=== PATIENT | female | born 1960 | race Caucasian/White ===

== ENCOUNTER 2016-06-04 11:51 | Outpatient (CLI) ==
[2016-03-09 07:42] VITALS: BMI 38.9
[2016-06-04 13:28] LABS: BASOPHILS # (AUTO) 0.1 K/uL (0-0.2); BASOPHILS % (AUTO) 1.1 % (0.0-3.0); EOSINOPHILS # (AUTO) 0.2 K/ul (0.0-0.7); HEMOGLOBIN 12.7 g/dl (12.0-16.0); IMMATURE GRANULOCYTE % (AUTO) 0.4 % (0.0-5.0); LYMPHOCYTES # (AUTO) 2.3 K/uL (0.60-3.4); LYMPHOCYTES % (AUTO) 30.7 (10.0-50.0); MEAN CORPUSCULAR HEMOGLOBIN 25.8 pg (27.0-31.0); MEAN CORPUSCULAR VOLUME 83.3 fl (81.0-99.0); MONOCYTES # (AUTO) 0.7 K/uL (0.4-2.0); MONOCYTES % (AUTO) 9.6 (0-10); NEUTROPHILS # (AUTO) 4.3 K/ul (2.0-6.9); NEUTROPHILS % (AUTO) 56.2; PLATELET COUNT 380 10^3/uL (140-440); RED BLOOD COUNT 4.92 10^6/ul (4.20-5.40)
[2016-06-04 14:18] LABS: ALBUMIN 3.7 g/dL (3.4-5.0); ALBUMIN/GLOBULIN RATIO 1.06; ANION GAP 11.3; BILIRUBIN,TOTAL 0.47 mg/dL (0.00-1.20); CALCIUM 9.6 mg/dL (8.2-10.2); CREATININE 0.84 mg/dL (0.60-1.30); POTASSIUM 4.3 mmol/L (3.5-5.10); TOTAL PROTEIN 7.2 g/dL (6.4-8.2)
== END 2016-06-04 11:52 | disposition home or self-care (01) ==
LOC: LAB 11:51
PROVIDERS: ATTEND Nurse Practitioner Family
DX: E11.9 Type 2 diabetes mellitus without complications (principal); E78.1 Pure hyperglyceridemia; E78.5 Hyperlipidemia, unspecified; G62.9 Polyneuropathy, unspecified; E03.9 Hypothyroidism, unspecified
CPT/HCPCS: 36415; 80053; 80061; 83036; 84443; 85025

== ENCOUNTER 2016-07-20 07:46 | Outpatient (CLI) ==
[2016-03-09 07:42] VITALS: BMI 38.9
--- NOTE | 2016-07-20 08:15 | DI ---
EXAM: Lumbar spine five views HISTORY: Lumbar radiculopathy, disc degeneration COMPARISON: 03/04/2010 TECHNIQUE: Five views lumbar spine were performed including oblique views. FINDINGS: The patient status post posterior spinal fusion L3-L4. Hardware appears intact. Sacroil iac joints intact. Sacral arcuate lines intact. Mild rightward curvature lumbar spine. Vertebral b odies normal height. Multilevel marginal osteophyte formation. Multilevel mild to moderate interve rtebral disc space narrowing. Multilevel facet arthrosis. There is approximate 3 mm retrolisthesis of L1 on L2 and approximately 2 mm anterolisthesis of L5 on S1. Atherosclerotic vascular calcifica tion. IMPRESSION: Posterior spinal fusion L3-L4. Chronic discogenic degenerative disease and facet arthr osis with grade 1 spondylolistheses.
== END 2016-07-20 07:47 | disposition home or self-care (01) ==
LOC: RAD 07:46
PROVIDERS: ATTEND Pain Medicine Interventional Pain Medicine
DX: M51.16 Intervertebral disc disorders with radiculopathy, lumbar region (principal); M51.17 Intervertebral disc disorders with radiculopathy, lumbosacral region; M96.1 Postlaminectomy syndrome, not elsewhere classified; M51.36 Other intervertebral disc degeneration, lumbar region; M51.37 Other intervertebral disc degeneration, lumbosacral region

== ENCOUNTER 2016-07-31 08:12 | Outpatient (CLI) | payer OTHER ==
[2016-03-09 07:42] VITALS: BMI 38.9
[2016-07-31 08:47] LABS: ALBUMIN 3.4 g/dL (3.4-5.0); ALBUMIN/GLOBULIN RATIO 0.94; ANION GAP 16.3; BILIRUBIN,TOTAL 0.33 mg/dL (0.00-1.20); BUN/CREATININE RATIO 21.17; CALCIUM 9.7 mg/dL (8.2-10.2); CHOL/HDL RATIO 5.2 (4.5-5.5); CREATININE 0.85 mg/dL (0.60-1.30); POTASSIUM 4.3 mmol/L (3.5-5.10)
== END 2016-07-31 08:13 | disposition home or self-care (01) ==
LOC: LAB 08:12
PROVIDERS: ATTEND Nurse Practitioner Family
DX: E78.5 Hyperlipidemia, unspecified (principal)
CPT/HCPCS: 36415; 80053; 80061

== ENCOUNTER 2016-10-13 08:12 | Outpatient (CLI) | payer OTHER ==
[2016-03-09 07:42] VITALS: BMI 38.9
[2016-10-13 08:27] LABS: BASOPHILS % (AUTO) 0.5 % (0.0-3.0); EOSINOPHILS # (AUTO) 0.3 K/ul (0.0-0.7); EOSINOPHILS % (AUTO) 4.1 % (0.0-7.0); HEMATOCRIT 41.6 % (37.0-47.0); HEMOGLOBIN 14.1 g/dl (12.0-16.0); IMMATURE GRANULOCYTE % (AUTO) 0.5 % (0.0-5.0); LYMPHOCYTES % (AUTO) 30.3 (10.0-50.0); MEAN CORPUSCULAR HEMOGLOBIN 27.3 pg (27.0-31.0); MEAN CORPUSCULAR HGB CONC 33.9 (31.8-35.4); MEAN CORPUSCULAR VOLUME 80.5 fl (81.0-99.0); MONOCYTES # (AUTO) 0.6 K/uL (0.4-2.0); MONOCYTES % (AUTO) 8.7 (0-10); NEUTROPHILS # (AUTO) 3.7 K/ul (2.0-6.9); NEUTROPHILS % (AUTO) 55.9; PLATELET COUNT 402 10^3/uL (140-440); RED BLOOD COUNT 5.17 10^6/ul (4.20-5.40); WHITE BLOOD COUNT 6.53 K/ul (4.6-10.2)
[2016-10-13 09:09] LABS: ALBUMIN 3.8 g/dL (3.4-5.0); ALBUMIN/GLOBULIN RATIO 0.88; ANION GAP 16.3; BILIRUBIN,TOTAL 0.4 mg/dL (0.00-1.20); BUN/CREATININE RATIO 25.74; CALCIUM 10.2 mg/dL (8.2-10.2); CHOL/HDL RATIO 6.7 (4.5-5.5); CREATININE 1.01 mg/dL (0.60-1.30); POTASSIUM 4.3 mmol/L (3.5-5.10); TOTAL PROTEIN 8.1 g/dL (6.4-8.2)
== END 2016-10-13 08:13 | disposition home or self-care (01) ==
LOC: LAB 08:12
PROVIDERS: ATTEND Nurse Practitioner Family
DX: E78.1 Pure hyperglyceridemia (principal); E78.5 Hyperlipidemia, unspecified; E11.9 Type 2 diabetes mellitus without complications; E03.9 Hypothyroidism, unspecified; E66.9 Obesity, unspecified
CPT/HCPCS: 36415; 80053; 80061; 83036; 84443; 85025

== ENCOUNTER 2016-12-02 14:47 | Inpatient (IN) ==
[2016-12-02] MEDS ORDERED: NITROSTAT SL PRN (14:59)
[2016-12-02] MEDS ORDERED: ATROPINE SULFATE PFS IVP PRN (14:59)
[2016-12-02] MEDS ORDERED: MORPHINE 4 MG/ML SYRINGE IVP PRN (14:59)
[2016-12-02] MEDS ORDERED: TYLENOL PO PRN (14:59)
[2016-12-02] MEDS ORDERED: LASIX IVP STA (14:59)
[2016-12-02] MEDS ORDERED: VISTARIL INJ IM PRN (14:59)
[2016-12-02] MEDS ORDERED: SODIUM CHLORIDE 1,000 ML IV SCH (15:00)
[2016-12-02 15:29] LABS: BASOPHILS # (AUTO) 0.1 K/uL (0-0.2); BASOPHILS % (AUTO) 1.1 % (0.0-3.0); EOSINOPHILS # (AUTO) 0.2 K/ul (0.0-0.7); EOSINOPHILS % (AUTO) 2.4 % (0.0-7.0); HEMATOCRIT 36.9 % (37.0-47.0); HEMOGLOBIN 12.4 g/dl (12.0-16.0); IMMATURE GRANULOCYTE % (AUTO) 0.9 % (0.0-5.0); LYMPHOCYTES # (AUTO) 2.4 K/uL (0.60-3.4); LYMPHOCYTES % (AUTO) 28.7 (10.0-50.0); MEAN CORPUSCULAR HEMOGLOBIN 27.7 pg (27.0-31.0); MEAN CORPUSCULAR HGB CONC 33.6 (31.8-35.4); MEAN CORPUSCULAR VOLUME 82.6 fl (81.0-99.0); MONOCYTES # (AUTO) 0.8 K/uL (0.4-2.0); MONOCYTES % (AUTO) 10.3 (0-10); NEUTROPHILS # (AUTO) 4.6 K/ul (2.0-6.9); NEUTROPHILS % (AUTO) 56.6; PLATELET COUNT 293 10^3/uL (140-440); RED BLOOD COUNT 4.47 10^6/ul (4.20-5.40); WHITE BLOOD COUNT 8.18 K/ul (4.6-10.2)
[2016-12-02 15:36] VITALS: BMI 42.0
[2016-12-02] MEDS: LOVENOX SUBCUT SCH (15:52)
[2016-12-02] MEDS: SOLU-MEDROL 125 MG IVP SCH ×2 (15:52→20:09)
[2016-12-02] MEDS ORDERED: ZOFRAN TAB PO PRN (16:06)
[2016-12-02 16:07] LABS: ALANINE AMINOTRANSFERASE 23 U/L (12-78); ALBUMIN 3.4 g/dL (3.4-5.0); ALBUMIN/GLOBULIN RATIO 0.94; ALKALINE PHOSPHATASE 31 U/L (42-98); ASPARTATE AMINO TRANSFERASE 17 U/L (15-37); BLOOD UREA NITROGEN 26 mg/dL (7-18); BUN/CREATININE RATIO 28.88; CALCIUM 9.4 mg/dL (8.2-10.2); CARBON DIOXIDE 25 mmol/L (21-32); CHLORIDE 101 mmol/L (98-107); CREATINE KINASE 129 U/L; GLUCOSE 261 mg/dL (70-110); MYOGLOBIN 50 ng/ml; SODIUM 136 mmol/L (136-145)
[2016-12-02 16:10] LABS: CREATINE KINASE MB 3.8 ng/ml (0.0-3.6)
--- NOTE | 2016-12-02 16:33 | CT ---
EXAM: CT chest without contrast. HISTORY: Shortness of air. Chest pain. COMPARISON: Radiograph 02/06/2013. CT 01/04/2011. TECHNIQUE: Multiple axial images of the chest were obtained without intravenous contrast. Images w ere reformatted in the sagittal and coronal planes. FINDINGS: Evaluation for lymphadenopathy is limited by lack of intravenous contrast. Heart size is normal. There is a small amount of pericardial fluid. Atherosclerotic calcifications are present. No consolidation, pleural effusion or pneumothorax identified. There is a stable right upper lobe m icronodule on axial image 10. There is a 0.2 cm right upper lobe micronodule on axial image 12 whic h appears new. Limited images of the upper abdomen suggest hepatomegaly. Degenerative changes present throughout t he spine. IMPRESSION: 1. No acute cardiopulmonary process. 2. New right upper lobe micronodule. Consider follow-up examination in 12 months.
[2016-12-02 16:44] LABS: ADD URINE MICROSCOPIC NO; BILIRUBIN,URINE Negative (NEGATIVE); KETONES,URINE Negative (NEGATIVE); LEUKOCYTE ESTERASE ,URINE Negative (NEGATIVE); NITRITE,URINE Negative (NEGATIVE); PH,URINE 5.5 (5-9); PROTEIN,URINE Negative (NEGATIVE); URINE, BLOOD Negative (NEGATIVE)
[2016-12-02] MEDS: OMEGA-3 FISH OIL PO SCH (17:05)
[2016-12-02] MEDS: PRILOSEC PO SCH (17:05)
[2016-12-02] MEDS: HUMULIN R SUBCUT PRN ×2 (17:06→20:52)
[2016-12-02] MEDS: NORCO 10-325 PO SCH ×2 (17:06→20:53)
[2016-12-02] MEDS: GLUCOPHAGE PO SCH (17:06)
[2016-12-02] MEDS: HUMALOG SUBCUT SCH (17:07)
[2016-12-02 17:09] LABS: ABG BASE EXCESS 7 (-2.0-2.0); ABG HCO3 31.1 (22.0-26.0); ABG PCO2 45.9 mmHg (35-45); ABG PH 7.438 (7.35-7.45); ABG TCO2 32 (22.0-28.0)
[2016-12-02] MEDS ORDERED: INSULIN ASPART 25 UNIT SQ SCH (17:30)
[2016-12-02] MEDS ORDERED: NON-FORMULARY MEDICATION (Omega-3 Acid Ethyl Esters [Lovaza] 1 GM) PO SCH ×22 (17:30)
[2016-12-02] MEDS ORDERED: NON-FORMULARY MEDICATION (Metformin Hcl [Metformin Hcl] 1,000 MG) PO SCH ×22 (17:30)
[2016-12-02] MEDS: DUONEB NEB SCH (20:20)
[2016-12-02] MEDS: LYRICA PO SCH (20:53)
[2016-12-02] MEDS: LANTUS SUBCUT SCH (20:53)
[2016-12-02] MEDS: LIPITOR PO SCH (20:53)
[2016-12-02] MEDS: DESYREL PO SCH (20:53)
[2016-12-02] MEDS: ROBAXIN PO SCH (20:55)
[2016-12-02] MEDS: TRIGLIDE PO SCH (20:55)
[2016-12-02] MEDS ORDERED: NON-FORMULARY MEDICATION (Atorvastatin Calcium [Atorvastatin Calcium] 40 MG) PO SCH ×22 (21:00)
[2016-12-02] MEDS ORDERED: TRIGLIDE PO SCH (21:00)
[2016-12-02] MEDS ORDERED: METHOCARBAMOL 500 MG PO SCH ×21 (21:00)
[2016-12-02 23:11] LABS: TROPONIN I 0.016 ng/ml (0.0000-0.4000)
[2016-12-03 04:46] LABS: BASOPHILS % (AUTO) 0.3 % (0.0-3.0); HEMATOCRIT 37.7 % (37.0-47.0); HEMOGLOBIN 12.5 g/dl (12.0-16.0); IMMATURE GRANULOCYTE % (AUTO) 0.9 % (0.0-5.0); LYMPHOCYTES # (AUTO) 1.1 K/uL (0.60-3.4); LYMPHOCYTES % (AUTO) 9.7 (10.0-50.0); MEAN CORPUSCULAR HEMOGLOBIN 27.3 pg (27.0-31.0); MEAN CORPUSCULAR HGB CONC 33.2 (31.8-35.4); MEAN CORPUSCULAR VOLUME 82.3 fl (81.0-99.0); MONOCYTES # (AUTO) 0.1 K/uL (0.4-2.0); MONOCYTES % (AUTO) 1.1 (0-10); NEUTROPHILS # (AUTO) 9.9 K/ul (2.0-6.9); PLATELET COUNT 295 10^3/uL (140-440); RED BLOOD COUNT 4.58 10^6/ul (4.20-5.40); WHITE BLOOD COUNT 11.21 K/ul (4.6-10.2)
[2016-12-03 05:08] LABS: ALBUMIN 3.2 g/dL (3.4-5.0); ALBUMIN/GLOBULIN RATIO 0.91; ANION GAP 16.5; BILIRUBIN,TOTAL 0.24 mg/dL (0.00-1.20); BUN/CREATININE RATIO 31.91; CALCIUM 9.3 mg/dL (8.2-10.2); CREATININE 0.94 mg/dL (0.60-1.30); POTASSIUM 4.5 mmol/L (3.5-5.10); TOTAL PROTEIN 6.7 g/dL (6.4-8.2)
[2016-12-03] MEDS: DUONEB NEB SCH ×3 (05:38→20:33)
[2016-12-03] MEDS: SYNTHROID PO SCH (05:57)
[2016-12-03] MEDS: HUMULIN R SUBCUT PRN ×4 (05:57→21:10)
[2016-12-03] MEDS: PRILOSEC PO SCH ×2 (05:57→16:35)
[2016-12-03] MEDS: OMEGA-3 FISH OIL PO SCH ×3 (08:13→16:35)
[2016-12-03] MEDS: NORCO 10-325 PO SCH ×4 (08:13→21:10)
[2016-12-03] MEDS: SINGULAIR PO SCH (08:13)
[2016-12-03] MEDS: ESTRADIOL PO SCH (08:13)
[2016-12-03] MEDS: ASPIRIN EC PO SCH (08:13)
[2016-12-03] MEDS: FERROUS SULFATE PO SCH (08:13)
[2016-12-03] MEDS: GLUCOPHAGE PO SCH ×2 (08:13→16:35)
[2016-12-03] MEDS: COLACE PO SCH (08:14)
[2016-12-03] MEDS: LOVENOX SUBCUT SCH (08:14)
[2016-12-03] MEDS: LYRICA PO SCH ×3 (08:14→21:10)
[2016-12-03] MEDS: ROBAXIN PO SCH ×3 (08:14→21:13)
[2016-12-03] MEDS: HUMALOG SUBCUT SCH ×3 (08:22→17:48)
[2016-12-03] MEDS ORDERED: NON-FORMULARY MEDICATION (Meloxicam [Mobic] 15 MG) PO SCH ×22 (09:00)
[2016-12-03] MEDS ORDERED: LASIX TAB PO SCH (09:00)
[2016-12-03] MEDS ORDERED: NON-FORMULARY MEDICATION (Fluticasone Propionate [Flonase Allergy Relief] 2 SPRAY) NS SCH (09:00)
[2016-12-03] MEDS ORDERED: NON-FORMULARY MEDICATION (Ferrous Sulfate [Ferrous Sulfate] 325 MG) PO SCH ×22 (09:00)
[2016-12-03] MEDS ORDERED: MOBIC PO SCH (09:00)
[2016-12-03] MEDS ORDERED: ZESTRIL PO SCH (09:00)
[2016-12-03] MEDS ORDERED: ESTRADIOL 1 MG PO SCH ×22 (09:00)
[2016-12-03] MEDS: HYDROCHLOROTHIAZIDE PO SCH (09:17)
[2016-12-03] MEDS: SOLU-MEDROL 125 MG IVP SCH ×2 (09:17→21:16)
--- NOTE | 2016-12-03 13:52 | CT ---
EXAM: CT head without contrast. HISTORY: Weakness. Dizziness. COMPARISON: 03/28/2014. TECHNIQUE: Multiple axial images of the brain were obtained from the skull base through the vertex without intravenous contrast. FINDINGS: There is no intracranial hemorrhage or extraaxial collection. The alejandre-white differentia tion is maintained without evidence for acute large vascular territory infarction. The cortical sul ci and basal cisterns are well visualized. There is no hydrocephalus, mass effect, or midline shift . Moderate mucosal thickening of the right maxillary sinus noted. There is a small amount of fluid within the right mastoid air cells. Otherwise, the paranasal sinuses and mastoid air cells are samuel ar. The calvarium is intact. Since the prior study, there has been no significant interval change. IMPRESSION: No acute intracranial abnormality.
--- NOTE | 2016-12-03 15:00 | US ---
EXAM: Ultrasound bilateral carotid duplex. HISTORY: Weakness. Dizziness. COMPARISON: 03/08/2012. TECHNIQUE: Multiple alejandre scale and color Doppler images were obtained. FINDINGS: Please note that estimates of internal carotid artery stenoses are based upon NASCET barrington montez. Right carotid: Soft plaquing noted without 50% or greater stenosis. Peak systolic velocity measure ment in the right internal carotid artery is 0.7 meters per second. Right internal to common caroti d artery peak systolic velocity ratio measures 1.1. End diastolic velocity measurement in the right internal carotid artery is 0.2 meters per second. Flow in the right vertebral artery is antegrade. Left carotid: Soft plaquing noted without 50% or greater stenosis. Peak systolic velocity measurem ent in the left internal carotid artery is 1.3 meters per second. Left internal to common carotid a rtery peak systolic velocity ratio measures 1.7. End diastolic velocity measurement in the left int ernal carotid artery measures 0.3 meters per second. Flow in the left vertebral artery is antegrade . IMPRESSION: 1. No evidence for 50% or greater stenosis in the right or left internal carotid artery. 2. Antegrade flow in both vertebral arteries.
[2016-12-03] MEDS: LANTUS SUBCUT SCH (21:12)
[2016-12-03] MEDS: LIPITOR PO SCH (21:13)
[2016-12-03] MEDS: DESYREL PO SCH (21:13)
[2016-12-03] MEDS: TRIGLIDE PO SCH (21:15)
[2016-12-04 04:57] LABS: BASOPHILS % (AUTO) 0.1 % (0.0-3.0); EOSINOPHILS % (AUTO) 0.1 % (0.0-7.0); HEMATOCRIT 38.7 % (37.0-47.0); HEMOGLOBIN 12.8 g/dl (12.0-16.0); LYMPHOCYTES # (AUTO) 1.1 K/uL (0.60-3.4); LYMPHOCYTES % (AUTO) 7.8 (10.0-50.0); MEAN CORPUSCULAR HEMOGLOBIN 27.1 pg (27.0-31.0); MEAN CORPUSCULAR HGB CONC 33.1 (31.8-35.4); MEAN CORPUSCULAR VOLUME 81.8 fl (81.0-99.0); MONOCYTES # (AUTO) 0.3 K/uL (0.4-2.0); MONOCYTES % (AUTO) 2.3 (0-10); NEUTROPHILS # (AUTO) 12.5 K/ul (2.0-6.9); NEUTROPHILS % (AUTO) 88.7; PLATELET COUNT 342 10^3/uL (140-440); RED BLOOD COUNT 4.73 10^6/ul (4.20-5.40); WHITE BLOOD COUNT 14.06 K/ul (4.6-10.2)
[2016-12-04] MEDS: DUONEB NEB SCH (05:21)
[2016-12-04 05:32] LABS: ALBUMIN 3.6 g/dL (3.4-5.0); ALBUMIN/GLOBULIN RATIO 0.95; ANION GAP 20.7; BILIRUBIN,TOTAL 0.24 mg/dL (0.00-1.20); BUN/CREATININE RATIO 32.98; CALCIUM 10.1 mg/dL (8.2-10.2); CREATININE 0.97 mg/dL (0.60-1.30); POTASSIUM 4.7 mmol/L (3.5-5.10); TOTAL PROTEIN 7.4 g/dL (6.4-8.2)
[2016-12-04] MEDS: SYNTHROID PO SCH (06:07)
[2016-12-04] MEDS: PRILOSEC PO SCH (06:07)
[2016-12-04] MEDS: HUMULIN R SUBCUT PRN (06:08)
[2016-12-04] MEDS ORDERED: LASIX TAB PO SCH (06:30)
--- NOTE | 2016-12-04 07:34 | ECHO2D ---
Date of Exam: 12/03/16 [facility] Reason for Echo: CHEST HEAVINESS, CHEST PAIN M-Mode Normal Adult Results LV Dimensions Normal Adult Results AoV Opening excursions >1.6 >1.6 LVEDD-base- 3.5-5.8 5.0 Ao root dimensions 2.0-3.7 3.2 LVESD-base- 3.1-4.6 L. Atrium dimensions 1.9-3.8 3.9 Post. Wall thickness 0.8-1.1 1.1 IV septum (thickness) 0.7-1.2 1.0 Post. Wall excursion 0.72-1.3 NORMAL Septal motion NORMAL Systolic motion R. Ventricular cavity 1.5-2.0 NORMAL LVEF 60% 63% Paradoxical septal wall motion NORMAL 2-D : 2-D M Mode Echocardiogram was performed using apical four chamber and left parasternal long and short axis views. Mitral, tricuspid and aortic valves appear to be normal. Contractility of the left ventricle seems to be normal, so is the cavity size. Left atrial cavity size and aortic root appear to be normal. There is no pericardial effusion. There is no thrombus noted in the left ventricular or left aortic cavity. No mitral valve prolapse noted. M-MODE: MV: NORMAL AV: NORMAL TV: NORMAL PV: CHAMBER SIZE: NORMAL WALL MOTION: NORMAL PERICARDIUM: NORMAL INTERPRETATION: 1. NORMAL 2 "D" "M" MODE ECHO MTDD
[2016-12-04] MEDS ORDERED: MOBIC PO SCH (08:00)
[2016-12-04] MEDS: LOVENOX SUBCUT SCH (08:33)
[2016-12-04] MEDS: ESTRADIOL PO SCH (08:33)
[2016-12-04] MEDS: ASPIRIN EC PO SCH (08:33)
[2016-12-04] MEDS: ROBAXIN PO SCH (08:33)
[2016-12-04] MEDS: COLACE PO SCH (08:36)
[2016-12-04] MEDS: FERROUS SULFATE PO SCH (08:36)
[2016-12-04] MEDS: SINGULAIR PO SCH (08:36)
[2016-12-04] MEDS: LYRICA PO SCH (08:36)
[2016-12-04] MEDS: OMEGA-3 FISH OIL PO SCH ×2 (08:36→12:24)
[2016-12-04] MEDS: HYDROCHLOROTHIAZIDE PO SCH (08:36)
[2016-12-04] MEDS: GLUCOPHAGE PO SCH (08:37)
[2016-12-04] MEDS: SOLU-MEDROL 125 MG IVP SCH (08:39)
[2016-12-04] MEDS: HUMALOG SUBCUT SCH ×2 (08:40→12:24)
[2016-12-04] MEDS: NORCO 10-325 PO SCH (08:57)
[2016-12-04 11:26] VITALS: BP 154/77; TEMP 97.6
--- NOTE | 2016-12-04 15:44 | PN ---
DATE OF SERVICE: 12/03/16 SUBJECTIVE: The patient was admitted with the shortness of breath and mild asthma and exacerbation and dependant edema. BNP was negative. CT chest showed did not show any infiltrate. Two sets are the cardiac enzymes are negative. Dependant edema is a little bit better today with the Lasix. REVIEW OF SYSTEMS: CONSTITUTIONAL: No fever, no chills. HEENT: Normal. ENDOCRINE: No weight gain, no weight loss. CVS: No angina symptoms. No CHF symptoms. No palpitations. No atypical chest pain for CAD. No shortness of breath. No PND, no orthopnea. RESPIRATORY: No cough, no hemoptysis. GI: No nausea, no vomiting. No abdominal pain. : No hematuria. No polyuria. MUSCULOSKELETAL:. No joint swelling. PSYCHIATRIC: Not anxious. No depression. No suicidal thoughts. No homicidal thoughts. SKIN: Intact. No rash. PHYSICAL EXAMINATION: V/S: Blood pressure 134/77, respiratory rate 20, heart rate 82, temperature 97.8. HEENT: Normocephalic, atraumatic. Mucosa dry. NECK: Supple. No JVD, no carotid bruit. No lymphadenopathy. LUNGS: Decreased and Clear to auscultation. No rales or rhonchi. HEART: S1, S2 normal. No S3. No murmur, gallop or regurgitation. ABDOMEN: Soft, nontender. Bowel sounds active. No rigidity. No rebound or guarding. No CVA tenderness. EXTREMITIES: No clubbing, cyanosis. 1+ edema. MUSCULOSKELETAL: No joint swelling. NEUROLOGIC: Awake, alert, oriented times three. No focal deficit. LYMPHATIC: No lymph nodes palpable. SKIN: Intact. LABS: WBC 11.21, hgb 12.5, hct 37.7, plt count 195, sodium 135, potassium 4.5, chloride 98, bicarb 25, BUN 30, creatinine 0.94 and sugar 282 ASSESSMENT: 1. Shortness of breath similar to the asthmatic exacerbation 2. Chest pain, non-cardiac 3. Diabetes, uncontrolled 4. Hypertension 5. Dyslipidemia PLAN: 1. Lovenox for the DVT prophylaxis 2. Daily I&O's 3. Echocardiogram Will follow the patient in daily rounds. TIME SPENT: More than 30 minutes MTDD
--- NOTE | 2016-12-04 15:53 | DS ---
DATE OF SERVICE: 12/04/16 FINAL DIAGNOSIS: 1. Asthmatic exacerbation 2. Shortness of breath secondary to the asthmatic exacerbation 3. Dependant Edema, not related to the CHF 4. Chest pain, still under the evaluation with outpatient stress test, Dobutamine stress echo and sestamibi 5. Diabetes, Labile 6. Hypertension 7. Dyslipidemia 8. Obesity 9. Dependent edema 10.Fatty liver 11.Bilateral lingual hernia repair 12.Hysterectomy 13.Left hand carpal tunnel surgery, 08/2016 14.History of back surgery, 2001 15.Anxiety disorder 16.Depression DISCHARGE INSTRUCTIONS: Discharge the patient home. Outpatient Dobutamine Stress Echo and Sestamibi next week, 12/09. Recovery Agent followup and consult. Resume home medications. MEDICATIONS AT DISCHARGE: Colace 100mg PO daily Metformin 1,000mg PO twice a day Atorvastatin 40mg PO bedtime Prilosec 20mg PO twice a day Robaxin 500mg PO three times a day Fenofibrate 160mg PO bedtime Hydrocodone/Acetaminophen 10-325 one PO four times a day Lasix 40mg PO daily Flonase Allergy Relief 2 sprays NS daily PRN Ferrous Sulfate 325mg PO daily NovoLog FlexPen 25 unit SQ three times a day Lee-3 1gram PO three times a day Trazodone 50mg PO bedtime Lyrica 50mg three times a day Levothyroxine 75mcg PO daily Zofran 4mg PO twice a day PRN Vitamin D2 50,000unit PO weekly Lantus 100 unit SUBCUT bedtime Singulair 10mg PO daily Estradiol 1mg PO daily Mobic 15mg PO daily Hydrochlorothiazide 25mg PO daily Prednisone 10mg PO twice a day DUO NEBS 1 vial NEB RT twice a day PRN NEW PRESCRIPTIONS: DUO NEBS two to three times per day Prednisone 10mg twice a day for 5 five DIET INSTRUCTIONS: Cardiac and Diabetes Diet ACTIVITY: As much as tolerated SMOKING: Non-Smoker DISEASE SPECIFIC EDUCATION: Asthmatic bronchitis Need of pneumonia vaccination been discussed and verbalized understanding. HOSPITAL COURSE: IndumumtazKamryn a 55 year old female who came initially to office complaining of worsening shortness of breath over time period 4-5 days and cough and midsternal chest pain, heaviness and radiating to the left arm. In review of the patient's diabetes, hypertension and history of TIA's she was admitted to the hospital to rule out acute coronary syndrome. Echocardiogram was ordered and three sets of the cardiac enzymes are negative. ABG showed the pH 7.438, pCO2 45.9,l pO2 89. Sugars were [address] of the chest was negative for any infection. Meanwhile the family was visiting the patient and they were complaining that the patient's right side of the mouth was deviated and they are worried about the stroke. At that time CT of head was done which did not show any stroke. Carotid ultrasound which did show any blockage which showed no evidence for 50 or greater stenosis. Echocardiogram showed the left ventricle hypertrophy. Normal 2D mode echocardiogram, ejection fraction is 63%. With Lasix IV push two days the patient did feel a little better with the swelling otherwise no complications during the hospital stay. At that time the patient is discharged home on DUO NEBS and steroids. Outpatient Dobutamine stress echo and sestamibi. TIME SPENT: More than 55 minutes today. KLEVER
[2016-12-07] MEDS ORDERED: DRISDOL PO SCH (09:00)
== END 2016-12-04 12:48 | disposition home or self-care (01) | DRG 203 ==
LOC: SCU 14:47 → MEDSURG B 12-03 21:35
PROVIDERS: ADMIT Emergency Medicine; ATTEND Emergency Medicine
DX: J45.901 Unspecified asthma with (acute) exacerbation (principal); R06.02 Shortness of breath; R60.9 Edema, unspecified; R07.89 Other chest pain; E11.65 Type 2 diabetes mellitus with hyperglycemia; I10 Essential (primary) hypertension; E78.5 Hyperlipidemia, unspecified; E66.9 Obesity, unspecified; K76.0 Fatty (change of) liver, not elsewhere classified; F41.8 Other specified anxiety disorders; Z86.73 Personal history of transient ischemic attack (TIA), and cerebral infarction without residual deficits; Z79.84 Long term (current) use of oral hypoglycemic drugs; Z79.899 Other long term (current) drug therapy
CPT/HCPCS: 36415; 80053; 81001; 82550; 82553; 82803; 82962; 83874; 83880; 84484; 85025; 85379; 93005; 93010; 94640

== ENCOUNTER 2016-12-09 06:02 | Outpatient (CLI) ==
[2016-12-09] MEDS ORDERED: DOBUTAMINE 250 ML IV ONE (07:16)
[2016-12-09] MEDS ORDERED: ATROPINE SULFATE PFS ONE (07:17)
--- NOTE | 2016-12-09 10:02 | NM ---
Exam: Myocardial perfusion study. Date: 12/09/2016. Comparison: None. HISTORY: Chest pain and shortness of breath. TECHNIQUE: The patient was intravenously infused with dobutamine. During the infusion, 25.1 mCi of technetium 99m sestamibi was injected and SPECT myocardial perfusion imaging begun within 60 minute s. For comparison, resting study was performed following injection of 4.2 mCi of thallium 201. A s tress gated acquisition was acquired as part of the study to evaluate for regional wall motion as we ll as to give an estimation of the left ventricular ejection fraction. FINDINGS: On the stress images in the apical anterior and anteroseptal sue there is decreased perf usion with normal distribution on delayed thallium imaging. The LVEF is estimated at 59%. Impression: Stress induced ischemic change involving the apical anteroseptal and anterior sue. F urther workup would be recommended. LVEF estimated at 59%.
--- NOTE | 2016-12-09 10:51 | DOBSTECHST ---
Ordering Physician: LIAM Date of Test: 12/09/16 Reason for Examination: CHEST PAIN Current Medications: METFORMIN, ATORVASTATIN, PRILOSEC, ROBAXIN, FENOFIBRATE, LASIX, FLONASE, IRON, NOVOLOG, LOVAZA, TRAZODONE, LYRICA, ZOFRAN, SINGULAIR, MOBIC Height: 4' 11" Weight: 208 LBS Target Heart Rate: 140/165 ST Segment Stage Time HR BPM BP mmhg Rhythm +/- Up Down Comments/Symptoms Control Sitting 66 140/80 SR X NONE Dobutamine 250mg/D5W 5cmg/KG/mn 10cmg/KG/mn 3" 78 140/70 SR X NONE 15cmg/KG/mn 2" 90 150/60 SR X NONE 20cmg/KG/mn 2" 104 150/58 SR X NONE 25cmg/KG/mn 1:40 123 NONE 30cmg/KG/mn 35cmg/KG/mn 40cmg/KG/mn Time: 3 HR B/P Time: 6 HR B/P Time: HR B/P Recovery 87 150/64 Recovery 83 140/70 Recovery Total Time: 8:52 Maximum Heart Rate Reached: 123 __ Interpretation: 1. NO EVIDENCE OF ISCHEMIA BY ST-T WAVE (HEART RATE 60/BPM TO 123/BPM) 2. NORMAL LEFT VENTRICULAR CONTRACTILITY RESTING AND WITH DOBUTAMINE INFUSION 3. NO CHEST PAIN OR CHEST DISCOMFORT 4. PAC'S AND PVC'S WITH DOBUTAMINE INFUSION SESTAMIBI TO FOLLOW MTDD
--- NOTE | 2016-12-09 10:56 | ECHOSTRESS ---
Date of Exam: 12/09/16 Ordering Physician: LIAM Reason for Echo: CHEST PAIN M-Mode Normal Adult Results LV Dimensions Normal Adult Results AoV Opening excursions >1.6 LVEDD-base- 3.5-5.8 Ao root dimensions 2.0-3.7 LVESD-base- 3.1-4.6 L. Atrium dimensions 1.9-3.8 Post. Wall thickness 0.8-1.1 IV septum (thickness) 0.7-1.2 Post. Wall excursion 0.72-1.3 Septal motion Systolic motion R. Ventricular cavity 1.5-2.0 LVEF 60% Paradoxical septal wall motion 2-D: NORMAL LEFT VENTRICULAR CONTRACTILITY--RESTING AND WITH DOBUTAMINE INFUSION M-MODE: MV: AV: TV: PV: CHAMBER SIZE: WALL MOTION: NORMAL LEFT VENTRICULAR CONTRACTILITY--RESTING AND WITH DOBUTAMINE INFUSION PERICARDIUM: INTERPRETATION: 1. NORMAL LEFT VENTRICULAR CONTRACTILITY--RESTING AND WITH DOBUTAMINE INFUSION MTDD
== END 2016-12-09 06:03 | disposition home or self-care (01) ==
LOC: CAR 06:02
PROVIDERS: ATTEND Emergency Medicine
DX: R07.9 Chest pain, unspecified (principal); R06.02 Shortness of breath

== ENCOUNTER 2016-12-15 09:27 | Outpatient (CLI) ==
[2016-12-15 10:55] VITALS: BMI 42.4
== END 2016-12-15 09:28 | disposition home or self-care (01) ==
LOC: DIETCN 09:27
PROVIDERS: ATTEND Emergency Medicine
DX: E78.5 Hyperlipidemia, unspecified (principal); E11.9 Type 2 diabetes mellitus without complications; E66.9 Obesity, unspecified
CPT/HCPCS: 97802

== ENCOUNTER 2017-02-25 08:41 | Outpatient (CLI) ==
--- NOTE | 2017-02-26 09:09 | MAMMO ---
EXAM: Digital screening mammogram with tomosynthesis 3-D and CAD HISTORY: Screening mammogram COMPARISON: 05/07/2011 FINDINGS: Bilateral CC and MLO views of the breasts were performed digitally and demonstrate scatter ed fibroglandular breast density with subareolar parenchymal density. Tomosynthesis is normal. There is no abnormal nodule or calcification. There is no significant interval change. IMPRESSION: No new or suspicious nodule or calcification RECOMMENDATION: Annual screening mammogram BIRADS category 1: Negative
== END 2017-02-25 08:42 | disposition home or self-care (01) ==
LOC: RAD 08:41
PROVIDERS: ATTEND Emergency Medicine
DX: Z12.31 Encounter for screening mammogram for malignant neoplasm of breast (principal)
CPT/HCPCS: 77067

== ENCOUNTER 2017-03-18 05:14 | Emergency (ER) ==
[2017-03-18] MEDS ORDERED: ZOFRAN 4 MG/2 ML IVP STA (05:16)
[2017-03-18] MEDS ORDERED: SODIUM CHLORIDE 1,000 ML IV STA ×2 (05:16→06:33)
[2017-03-18 05:36] VITALS: BP 128/87; TEMP 97.7; BMI 45.4
--- NOTE | 2017-03-18 06:09 | ED.PDOC ---
General ED Provider: Dr. JAMEEL HANSON-ER Chief Complaint: Diarrhea Stated Complaint: im having diarrhea and vomiting and abd cramps Time Seen by Physician: 05:20 Mode of Arrival: Walk-In Information Source: Patient Exam Limitations: No limitations [facility] Nursing and Triage Documentation Reviewed and Agree: Yes GI Complaint Exam - Vomiting/Diarrhea Complaint/Exam Onset/Duration: several days Symptoms Are: Still present Initial Severity: Mild Current Severity: Mild Character of Vomiting: Reports: Non-bilious Character of Diarrhea: Reports: Watery Aggravating: Reports: None Alleviating: Reports: None Associated Signs and Symptoms: Reports: Abdominal pain, Cramping. Denies: Dizziness, Light-headedness, Melena, Hematemesis, Fever Use of Oral Contraceptives: No Use of Depoprovera: No Non-GI Risk Factors: Reports: None Surgical Obstruction Risk Factors: Reports: Prior abdominal surgery Abdominal Findings: Present: None Kussmaul Respirations Present: No Differential Diagnoses: Dehydration, Viral Gastroenteritis, Bacterial Gastroenteritis, UTI Review of Systems - Review Of Systems Constitutional: Reports: No symptoms Eyes: Reports: No symptoms Ears, Nose, Mouth, Throat: Reports: No symptoms Respiratory: Reports: No symptoms Cardiac: Reports: No symptoms GI: Reports: Abdominal pain, Diarrhea, Nausea, Vomiting : Reports: No symptoms Musculoskeletal: Reports: No symptoms Skin: Reports: No symptoms Neurological: Reports: No symptoms Endocrine: Reports: No symptoms Hematologic/Lymphatic: Reports: No symptoms All Other Systems: Reviewed and Negative Past Medical History - Past Medical History Previously Healthy: No Endocrine: Reports: Hypothyroid Cardiovascular: Reports: Hypertension Respiratory: Reports: COPD, Asthma Hematological: Reports: None Gastrointestinal: Reports: GERD, Liver (fatty liver) Genitourinary: Reports: None Neuro/Psych: Reports: Depression Musculoskeletal: Reports: None Cancer: Reports: None Last Menstrual Period: PT HAS HAD A HYSTERECTOMY Other Pertinent Past Medical History: SLEEP APNEA - Surgical History General Surgical History: Reports: Hysterectomy, (HERNIA REPAIR AND C- SECTION), Appendectomy, Cholecystectomy, Tonsillectomy, Adenoidectomy, Back Surgery, Other (CATARACT SURGERY BILITERALLY, ) - Family History Family History: Reports: Unknown - Social History Smoking Status: Never smoker Hx Substance Use: No Alcohol Screening: Occasionally Lives: With family - Immunizations Tetanus Shot up to Date: (UNKNOWN) Physical Exam - Physical Exam Appearance: Well-appearing, No pain distress, Well-nourished Pain Distress: Mild Eyes: STEVEN, EOMI, Conjunctiva clear ENT: Ears normal, Nose normal, Oropharynx normal Neck: Supple Respiratory: Airway patent, Breath sounds clear, Breath sounds equal, Respirations nonlabored Cardiovascular: RRR, Pulses normal, No rub, No murmur GI/: Soft, No masses, Bowel sounds normal Musculoskeletal: Normal strength, ROM intact, No edema, No calf tenderness Skin: Warm, Dry, Normal color Neurological: Sensation intact, Motor intact, Reflexes intact, Cranial nerves intact, Alert, Oriented Psychiatric: Affect appropriate, Mood appropriate Interpretation - Radiology Interpretation Radiology Interpretation By: Radiologist Radiology Results: Positive Exam Interpreted: CT Scan ("sbo with transition zone") Critical Care Note - Critical Care Note Total Time (mins): 0 Course - Course Hematology/Chemistry: 03/18/17 06:20 Orders, Labs, Meds: Lab Review 03/18/17 06:20 WBC 14.93 H RBC 5.34 Hgb 14.4 Hct 43.7 MCV 81.8 MCH 27.0 MCHC 33.0 RDW Coeff of Vern 14.3 Plt Count 346 Immature Gran % (Auto) 0.5 Neut % (Auto) 80.3 Lymph % (Auto) 9.9 L [place] % (Auto) 7.7 Eos % (Auto) 1.2 Baso % (Auto) 0.4 Immature Gran # (Auto) 0.1 Neut # 12.0 H Lymph # 1.5 [place] # 1.2 Eos # 0.2 Baso # 0.1 Orders Category Date Time Status EKG-(ED ONLY) Stat CARDIO 03/18/17 05:38 Completed ED IV/MEDIPORT/POWERPORT .ONCE EMERGENCY 03/18/17 05:16 Active NG Tube [ED NASOGASTRIC TUBE INSERTION] .ONCE EMERGENCY 03/18/17 06:38 Active CBC W/ AUTO DIFF Stat LAB 03/18/17 06:20 Completed COMPREHENSIVE METABOLIC PANEL Stat LAB 03/18/17 06:20 Received CREATINE KINASE Stat LAB 03/18/17 06:20 Received TROPONIN I Stat LAB 03/18/17 06:20 Received URINALYSIS C & S IF INDICATED Stat LAB 03/18/17 05:15 Uncollected 0.9 % Sodium Chloride [Saline Flush] MEDS 03/18/17 05:16 Ordered 1 syr IVF PRN PRN Ondansetron HCl/Pf [Zofran 4 mg/2 ml] MEDS 03/18/17 05:16 Discontinued 4 mg IVP ONCE STA Sodium Chloride 0.9% [Sodium Chloride] 1,000 ml MEDS 03/18/17 06:33 Active IV 100 mls/hr Sodium Chloride 0.9% [Sodium Chloride] 1,000 ml MEDS 03/18/17 05:[address] ABDOMEN/PELVIS WO CONTRAST Stat RADS 03/18/17 05:15 Taken Medications Generic Name Dose Route Start Last Admin Trade Name Freq PRN Reason Stop Dose Admin Sodium Chloride 1,000 mls @ 100 mls/hr 03/18/17 06:33 03/18/17 06:37 Sodium Chloride IV 03/18/17 16:32 100 mls/hr .Q10H STA Administration Sodium Chloride 1 syr 03/18/17 05:16 03/18/17 05:33 Saline Flush IVF 1 syr PRN PRN Administration To flush IV Discontinued Medications Generic Name Dose Route Start Last Admin Trade Name Freq PRN Reason Stop Dose Admin Sodium Chloride 1,000 mls @ 1,000 mls/hr 03/18/17 05:16 03/18/17 05:33 Sodium Chloride IV 03/18/17 06:15 1,000 mls/hr BOLUS STA Administration Ondansetron HCl 4 mg 03/18/17 05:16 03/18/17 05:45 Zofran 4 Mg/2 Ml IVP 03/18/17 05:17 4 mg ONCE STA Administration Vital Signs: Temp Pulse Resp BP Pulse Ox 03/18/17 05:17 97.7 F 92 H 20 128/87 95 Departure - Departure Time of Disposition: 06:40 Disposition: TSF SHORT-TRM HOSP Discharge Problem: Small bowel obstruction Instructions: Bowel Obstruction (ED) Condition: Stable Pt referred to PMD for follow-up: Yes Allergies/Adverse Reactions: Allergies No Known Allergies Allergy (Verified 03/18/17 05:37) Home Medications: Ambulatory Orders Docusate Sodium [Colace] 100 mg PO DAILY 02/06/13 Metformin HCl 1,000 mg PO BID 02/06/13 Methocarbamol [Robaxin] 500 mg PO TID 03/09/13 Omeprazole [Prilosec] 20 mg PO BID 03/09/13 Hydrocodone/Acetaminophen [Hydrocodon-Acetaminophn 10-325] 1 each PO QID Estradiol 1 mg PO DAILY 12/02/16 Insulin Glargine,Hum.rec.anlog [Lantus] 100 unit SUBCUT BEDTIME 12/02/16 Meloxicam [Mobic] 15 mg PO DAILY 12/03/16 Ipratropium/Albuterol Neb [Duoneb] 1 vial NEB RTBID PRN #60 vial.neb 12/04/16 Aspirin 81 mg PO d 01/21/17 Atorvastatin Calcium 80 mg PO BEDTIME 01/21/17 Albuterol Sulfate [Ventolin Hfa] 2 inh IH TID PRN 03/18/17 Fenofibrate 160 mg PO BEDTIME 03/18/17 Transfer Form Completed: Yes Disposition Discussed With: Patient
[2017-03-18 06:28] LABS: BASOPHILS # (AUTO) 0.1 K/uL (0-0.2); BASOPHILS % (AUTO) 0.4 % (0.0-3.0); EOSINOPHILS # (AUTO) 0.2 K/ul (0.0-0.7); EOSINOPHILS % (AUTO) 1.2 % (0.0-7.0); HEMATOCRIT 43.7 % (37.0-47.0); HEMOGLOBIN 14.4 g/dl (12.0-16.0); IMMATURE GRANULOCYTE % (AUTO) 0.5 % (0.0-5.0); LYMPHOCYTES # (AUTO) 1.5 K/uL (0.60-3.4); LYMPHOCYTES % (AUTO) 9.9 (10.0-50.0); MEAN CORPUSCULAR VOLUME 81.8 fl (81.0-99.0); MONOCYTES # (AUTO) 1.2 K/uL (0.4-2.0); MONOCYTES % (AUTO) 7.7 (0-10); NEUTROPHILS % (AUTO) 80.3; PLATELET COUNT 346 10^3/uL (140-440); RED BLOOD COUNT 5.34 10^6/ul (4.20-5.40); WHITE BLOOD COUNT 14.93 K/ul (4.6-10.2)
--- NOTE | 2017-03-18 06:40 | CT ---
EXAM: CT scan abdomen pelvis without contrast HISTORY: Nausea vomiting diarrhea COMPARISON: CT scan abdomen pelvis 04/19/2013 FINDINGS: Contiguous axial images obtained through the abdomen pelvis without contrast utilizing 3-m m collimation. Sagittal and coronal reconstructions were imaged and reviewed.. The visualized lung bases are clear. There is coronary artery calcification without pericardial effusion. Fatty infiltr ation is noted throughout the liver. There has been prior cholecystectomy. The pancreas, spleen and adrenal glands have normal enhanced CT appearance. The kidneys are morphologically normal. There h as been prior hysterectomy.. Atherosclerotic changes are seen involving the aorta without aneurysm f ormation. Stomach is mildly distended with air and fluid. There are dilated air and fluid-filled loo ps of small bowel which extend from left upper quadrant with a transition in the mid pelvis.. Postop erative changes are seen within the lower lumbar spine. IMPRESSION: Small bowel obstruction with transition in the mid pelvis. Status post cholecystectomy and hysterectomy. ASVD without aneurysm. Fatty liver. Results were conveyed to the emergency room physician via telephone 6:35 a.m. 03/18/2017
[2017-03-18 06:45] LABS: ALBUMIN/GLOBULIN RATIO 0.83; ANION GAP 16.4; BILIRUBIN,TOTAL 0.54 mg/dL (0.00-1.20); BUN/CREATININE RATIO 32.69; CALCIUM 9.4 mg/dL (8.2-10.2); CREATININE 1.04 mg/dL (0.60-1.30); POTASSIUM 3.4 mmol/L (3.5-5.10); TOTAL PROTEIN 6.6 g/dL (6.4-8.2)
[2017-03-18] MEDS ORDERED: LIDOCAINE VISCOUS 2% 15 ML UD MUCOUSMEMB ONE (06:50)
[2017-03-18 06:59] LABS: CREATINE KINASE 122 U/L
--- NOTE | 2017-03-18 07:53 | DI ---
EXAM: Chest one view, frontal view only. HISTORY: Nasogastric tube placement. COMPARISON: 12/02/2016. FINDINGS: Enteric tube courses below the diaphragm. Tip is seen in the epigastric region likely in the mid to distal stomach. The heart size is normal. There is no pulmonary vascular congestion. Th e lungs are clear. No pleural effusion or pneumothorax is seen. No acute osseous abnormality is margarito ntified. Lumbar spine fusion changes are incompletely imaged. IMPRESSION: Enteric tube positioned as described. No acute cardiopulmonary process.
== END 2017-03-18 08:05 | disposition short-term general hospital (02) ==
LOC: ED 05:14
DX: K56.609 Unspecified intestinal obstruction, unspecified as to partial versus complete obstruction (principal); E03.9 Hypothyroidism, unspecified; I10 Essential (primary) hypertension; K21.9 Gastro-esophageal reflux disease without esophagitis; K76.0 Fatty (change of) liver, not elsewhere classified; Z79.899 Other long term (current) drug therapy
CPT/HCPCS: 36415; 80053; 82550; 82553; 84484; 85025; 93005; 93010; 96361; 96374; 99285

== ENCOUNTER 2017-05-04 13:18 | Outpatient (CLI) ==
[2017-05-04 14:58] LABS: CHOL/HDL RATIO 3.1 (4.5-5.5)
== END 2017-05-04 13:19 | disposition home or self-care (01) ==
LOC: LAB 13:18
PROVIDERS: ATTEND Emergency Medicine
DX: E11.9 Type 2 diabetes mellitus without complications (principal)
CPT/HCPCS: 36415; 80061; 83036

== ENCOUNTER 2017-05-15 16:16 | Emergency (ER) ==
[2017-05-15 16:50] VITALS: BP 139/67; TEMP 98.9; BMI 45.2
[2017-05-15] MEDS ORDERED: SODIUM CHLORIDE 500 ML IV STA (17:06)
[2017-05-15] MEDS ORDERED: ZOFRAN 4 MG/2 ML IVP STA (17:06)
[2017-05-15 17:27] LABS: BASOPHILS # (AUTO) 0.1 K/uL (0-0.2); BASOPHILS % (AUTO) 0.4 % (0.0-3.0); EOSINOPHILS # (AUTO) 0.3 K/ul (0.0-0.7); EOSINOPHILS % (AUTO) 1.9 % (0.0-7.0); HEMATOCRIT 46.8 % (37.0-47.0); HEMOGLOBIN 15.8 g/dl (12.0-16.0); IMMATURE GRANULOCYTE % (AUTO) 0.4 % (0.0-5.0); LYMPHOCYTES # (AUTO) 1.9 K/uL (0.60-3.4); LYMPHOCYTES % (AUTO) 13.9 (10.0-50.0); MEAN CORPUSCULAR HEMOGLOBIN 26.8 pg (27.0-31.0); MEAN CORPUSCULAR HGB CONC 33.8 (31.8-35.4); MEAN CORPUSCULAR VOLUME 79.3 fl (81.0-99.0); MONOCYTES # (AUTO) 1.1 K/uL (0.4-2.0); MONOCYTES % (AUTO) 8.1 (0-10); NEUTROPHILS # (AUTO) 10.5 K/ul (2.0-6.9); NEUTROPHILS % (AUTO) 75.3; PLATELET COUNT 353 10^3/uL (140-440); WHITE BLOOD COUNT 13.95 K/ul (4.6-10.2)
--- NOTE | 2017-05-15 17:40 | CT ---
Exam: CT abdomen and pelvis without IV contrast. Clinical indication: Diarrhea. TECHNIQUE: Axial unenhanced CT images of the abdomen and pelvis were obtained followed by coronal an d sagittal reformats. Comparison is made to the prior study dated 03/18/2017. Findings: There are coronary artery calcifications. The remainder of the visualized portions of the lower thor ax are within normal limits. There is no free intra-abdominal gas or fluid. There has been a prior cholecystectomy. The liver, adrenals, pancreas, spleen, and kidneys are unremarkable, given the limitations of an unen hanced CT. There is aortic atherosclerotic vascular calcifications. There are no enlarged abdominal or pelvic lymph nodes, by size criteria. There has been a prior hysterectomy. The bowel is grossly unremarkable. The appendix is not visualized, likely surgically absent. There has been a prior L3-L4 posterior spinal fusion, without CT evidence of hardware complication. The remainder of the visualized bony structures are unremarkable. Impression: 1. Coronary and aortoiliac atherosclerotic vascular calcifications. 2. Otherwise, unremarkable CT of the abdomen and pelvis, given the limitations of an unenhanced CT.
[2017-05-15 17:49] LABS: ALBUMIN 3.5 g/dL (3.4-5.0); ALBUMIN/GLOBULIN RATIO 0.8; BILIRUBIN,TOTAL 0.49 mg/dL (0.00-1.20); BUN/CREATININE RATIO 27.19; CALCIUM 9.9 mg/dL (8.2-10.2); CREATININE 1.14 mg/dL (0.60-1.30); TOTAL PROTEIN 7.9 g/dL (6.4-8.2)
[2017-05-15] MEDS ORDERED: K-DUR PO STA (18:41)
--- NOTE | 2017-05-15 18:43 | ED.PDOC ---
General ED Provider: Dr. JUSTIN GONSALVES Chief Complaint: Nausea/Vomiting Stated Complaint: vOMITED X 4. sTILL FEELING NAUSEA. Time Seen by Physician: 18:44 Mode of Arrival: Walk-In Information Source: Patient Primary Care Provider: JUSTIN GONSALVES-[facility] Nursing and Triage Documentation Reviewed and Agree: Yes GI Complaint Exam - Vomiting/Diarrhea Complaint/Exam Symptoms Are: Still present Episodes of Vomiting over last 24 Hours: 5 Initial Severity: Moderate Current Severity: Moderate Character of Vomiting: Reports: Non-bilious Aggravating: Reports: Food, Movement Alleviating: Reports: None Associated Signs and Symptoms: Reports: Light-headedness. Denies: Dizziness, Melena, Hematemesis, Fever, Abdominal pain, Cramping Recent Positive Test: No Use of Oral Contraceptives: No Use of Depoprovera: No Compliant With Contraceptive Use: No Non-GI Risk Factors: Reports: None Surgical Obstruction Risk Factors: Reports: None Related Surgical History: Reports: None Abdominal Findings: Present: Pulsatile mass, Abdominal distention Differential Diagnoses: Viral Gastroenteritis, Bacterial Gastroenteritis Review of Systems - Review Of Systems Constitutional: Reports: Malaise, Weakness Eyes: Reports: No symptoms Ears, Nose, Mouth, Throat: Reports: No symptoms Respiratory: Reports: No symptoms Cardiac: Reports: No symptoms GI: Reports: Abdominal pain, Nausea, Vomiting : Reports: No symptoms Musculoskeletal: Reports: No symptoms Skin: Reports: No symptoms Neurological: Reports: No symptoms Endocrine: Reports: No symptoms Hematologic/Lymphatic: Reports: No symptoms All Other Systems: Reviewed and Negative Past Medical History - Past Medical History Previously Healthy: No Endocrine: Reports: Hypothyroid Cardiovascular: Reports: Hypertension Respiratory: Reports: COPD, Asthma Hematological: Reports: None Gastrointestinal: Reports: GERD, Liver (fatty liver) Genitourinary: Reports: None Neuro/Psych: Reports: Depression Musculoskeletal: Reports: None Cancer: Reports: None Last Menstrual Period: hysterectomy Other Pertinent Past Medical History: SLEEP APNEA - Surgical History General Surgical History: Reports: Hysterectomy, (HERNIA REPAIR AND C- SECTION), Appendectomy, Cholecystectomy, Tonsillectomy, Adenoidectomy, Back Surgery, Other (CATARACT SURGERY BILITERALLY, ) - Family History Family History: Reports: Unknown - Social History Smoking Status: Never smoker Hx Substance Use: No Alcohol Screening: None Physical Exam - Physical Exam Appearance: Ill-appearing Eyes: STEVEN, EOMI, Conjunctiva clear ENT: Ears normal, Nose normal, Oropharynx normal Respiratory: Airway patent, Breath sounds clear, Breath sounds equal, Respirations nonlabored Cardiovascular: RRR, Pulses normal, No rub, No murmur GI/: Soft, Nontender, No masses, Bowel sounds normal, No Organomegaly Musculoskeletal: Normal strength, ROM intact, No edema, No calf tenderness Skin: Warm, Dry, Normal color Neurological: Sensation intact, Motor intact, Reflexes intact, Cranial nerves intact, Alert, Oriented Psychiatric: Affect appropriate, Mood appropriate Critical Care Note - Critical Care Note Total Time (mins): 20 Course - Course Hematology/Chemistry: 05/15/17 17:23 05/15/17 17:23 Orders, Labs, Meds: Lab Review 05/15/17 05/15/17 17:23 17:23 WBC 13.95 H RBC 5.90 H Hgb 15.8 Hct 46.8 MCV 79.3 L MCH 26.8 L MCHC 33.8 RDW Coeff of Vern 15.2 H Plt Count 353 Immature Gran % (Auto) 0.4 Neut % (Auto) 75.3 Lymph % (Auto) 13.9 [place] % (Auto) 8.1 Eos % (Auto) 1.9 Baso % (Auto) 0.4 Immature Gran # (Auto) 0.1 Neut # 10.5 H Lymph # 1.9 [place] # 1.1 Eos # 0.3 Baso # 0.1 Sodium 140 Potassium 3.0 L Chloride 95 L Carbon Dioxide 26 Anion Gap 22.0 BUN 31 H Creatinine 1.14 Estimated GFR (MDRD) 49.00 BUN/Creatinine Ratio 27.19 Glucose 99 Calcium 9.9 Total Bilirubin 0.49 AST 28 ALT 31 Alkaline Phosphatase 55 Total Protein 7.9 Albumin 3.5 Globulin 4.4 Albumin/Globulin Ratio 0.80 Orders Category Date Time Status ED IV/MEDIPORT/POWERPORT .ONCE EMERGENCY 05/15/17 17:06 Active CBC W/ AUTO DIFF Stat LAB 05/15/17 17:23 Completed COMPREHENSIVE METABOLIC PANEL Stat LAB 05/15/17 17:23 Completed 0.9 % Sodium Chloride [Saline Flush] MEDS 05/15/17 17:06 Ordered 1 syr IVF PRN PRN Ondansetron HCl/Pf [Zofran 4 mg/2 ml] MEDS 05/15/17 17:06 Discontinued 4 mg IVP ONCE STA Potassium Chloride [K-Dur] MEDS 05/15/17 18:41 Stat 40 meq PO ONCE STA Sodium Chloride 0.9% [Sodium Chloride] 500 ml MEDS 05/15/17 17:06 Active IV 100 mls/hr CT ABDOMEN/PELVIS WO CONTRAST Stat RADS 05/15/17 17:06 Completed Medications Generic Name Dose Route Start Last Admin Trade Name Freq PRN Reason Stop Dose Admin Sodium Chloride 500 mls @ 100 mls/hr 05/15/17 17:06 05/15/17 17:46 Sodium Chloride IV 05/15/17 22:05 100 mls/hr .Q5H STA Administration Sodium Chloride 1 syr 05/15/17 17:06 Saline Flush IVF PRN PRN To flush IV Discontinued Medications Generic Name Dose Route Start Last Admin Trade Name Freq PRN Reason Stop Dose Admin Ondansetron HCl 4 mg 05/15/17 17:06 05/15/17 17:45 Zofran 4 Mg/2 Ml IVP 05/15/17 17:07 4 mg ONCE STA Administration Vital Signs: Temp Pulse Resp BP Pulse Ox 05/15/17 16:18 98.9 F 118 H 20 139/67 96 Departure - Departure Time of Disposition: 18:45 Disposition: HOME SELF-CARE Discharge Problem: Gastroenteritis Instructions: Dehydration (ED), Gastroenteritis (ED) Condition: Good Pt referred to PMD for follow-up: Yes Additional Instructions: SOFT DIET iNCREASE HYDRATION Prescriptions: Ondansetron [Zofran Odt] 4 mg PO Q8H #20 tab.rapdis Potassium Chloride 20 meq PO BID #14 tab.er.prt Allergies/Adverse Reactions: Allergies No Known Allergies Allergy (Verified 05/15/17 16:24) Home Medications: Ambulatory Orders Docusate Sodium [Colace] 100 mg PO DAILY 02/06/13 Metformin HCl 1,000 mg PO BID 02/06/13 Methocarbamol [Robaxin] 500 mg PO TID 03/09/13 Omeprazole [Prilosec] 20 mg PO BID 03/09/13 Hydrocodone/Acetaminophen [Hydrocodon-Acetaminophn 10-325] 1 each PO QID Estradiol 1 mg PO DAILY 12/02/16 Insulin Glargine,Hum.rec.anlog [Lantus] 100 unit SUBCUT BEDTIME 12/02/16 Meloxicam [Mobic] 15 mg PO DAILY 12/03/16 Ipratropium/Albuterol Neb [Duoneb] 1 vial NEB RTBID PRN #60 vial.neb 12/04/16 Aspirin 81 mg PO d 01/21/17 Atorvastatin Calcium 80 mg PO BEDTIME 01/21/17 Ondansetron [Zofran Odt] 4 mg PO Q8H #20 tab.rapdis 05/15/17 Potassium Chloride 20 meq PO BID #14 tab.er.prt 05/15/17
== END 2017-05-15 19:03 | disposition home or self-care (01) ==
LOC: ED 16:16
DX: K52.9 Noninfective gastroenteritis and colitis, unspecified (principal); E86.0 Dehydration; Z79.899 Other long term (current) drug therapy
CPT/HCPCS: 36415; 80053; 85025; 96361; 96374; 99283

== ENCOUNTER 2017-06-22 13:15 | Outpatient (CLI) | END 2017-06-22 13:16 | disposition home or self-care (01) | LOC: LAB 13:15 | PROVIDERS: ATTEND Emergency Medicine | DX: E11.9 Type 2 diabetes mellitus without complications (principal); E87.6 Hypokalemia | CPT/HCPCS: 36415; 80053 ==

== ENCOUNTER 2017-08-02 10:39 | Inpatient (IN) | payer OTHER ==
[2017-08-02 11:29] VITALS: BMI 41.5
[2017-08-02] MEDS ORDERED: NITROSTAT SL PRN (12:21)
[2017-08-02] MEDS ORDERED: VANCOMYCIN 1,000 MG in SODIUM CHLORIDE 200 ML IV SCH (12:30)
[2017-08-02] MEDS: VANCOMYCIN 750 MG in SODIUM CHLORIDE 250 ML IV SCH ×2 (13:20→21:28)
--- NOTE | 2017-08-02 13:30 | DI ---
EXAM: Left foot three views HISTORY: Third toe infection. FINDINGS / IMPRESSION: There is no evidence of bony destruction, fracture or joint dislocation. No significant arthropathy. Soft tissues have no radiopaque foreign body or gas collection.
[2017-08-02] MEDS: ROCEPHIN 1 GM in SODIUM CHLORIDE 50 ML IV SCH (14:50)
[2017-08-02] MEDS: ROBAXIN PO SCH ×2 (14:56→20:45)
[2017-08-02] MEDS ORDERED: INSULIN ASPART 25 UNIT SQ SCH (15:00)
[2017-08-02] MEDS ORDERED: HUMALOG SUBCUT SCH (15:00)
[2017-08-02] MEDS: LYRICA PO SCH ×2 (15:03→20:46)
[2017-08-02] MEDS ORDERED: K-DUR PO STA (17:05)
[2017-08-02] MEDS ORDERED: NON-FORMULARY MEDICATION (Omega-3 Acid Ethyl Esters [Lovaza] 1 GM) PO SCH (17:30)
[2017-08-02] MEDS: HUMALOG SUBCUT SCH (17:54)
[2017-08-02] MEDS: GLUCOPHAGE PO SCH (17:55)
[2017-08-02] MEDS: OMEGA-3 FISH OIL PO SCH (17:56)
[2017-08-02] MEDS: PRILOSEC PO SCH (19:54)
[2017-08-02] MEDS: LANTUS SUBCUT SCH (20:45)
[2017-08-02] MEDS: DESYREL PO SCH (20:46)
[2017-08-02] MEDS: TRIGLIDE PO SCH (20:46)
[2017-08-02] MEDS: LIPITOR PO SCH (20:46)
[2017-08-02] MEDS ORDERED: NON-FORMULARY MEDICATION (Metformin Hcl [Metformin Hcl] 1,000 MG) PO SCH (21:00)
[2017-08-02] MEDS ORDERED: NON-FORMULARY MEDICATION (Atorvastatin Calcium [Atorvastatin Calcium] 80 MG) PO SCH (21:00)
[2017-08-03] MEDS: PRILOSEC PO SCH ×2 (05:39→16:04)
[2017-08-03] MEDS: LASIX TAB PO SCH (05:39)
[2017-08-03] MEDS: SYNTHROID PO SCH (05:39)
[2017-08-03] MEDS: HUMALOG SUBCUT SCH ×4 (05:39→17:23)
[2017-08-03] MEDS ORDERED: FUROSEMIDE PO SCH (06:30)
[2017-08-03] MEDS: LOVENOX SUBCUT SCH (08:26)
[2017-08-03] MEDS: MIRALAX PO SCH (08:27)
[2017-08-03] MEDS: ROBAXIN PO SCH ×3 (08:27→21:01)
[2017-08-03] MEDS: PLAVIX PO SCH (08:27)
[2017-08-03] MEDS: ESTRADIOL PO SCH (08:28)
[2017-08-03] MEDS: LYRICA PO SCH ×3 (08:28→21:01)
[2017-08-03] MEDS: HYDROCHLOROTHIAZIDE PO SCH (08:28)
[2017-08-03] MEDS: GLUCOPHAGE PO SCH ×2 (08:28→17:24)
[2017-08-03] MEDS: OMEGA-3 FISH OIL PO SCH ×3 (08:28→17:24)
[2017-08-03] MEDS: JARDIANCE PO SCH (08:29)
[2017-08-03] MEDS: ROCEPHIN 1 GM in SODIUM CHLORIDE 50 ML IV SCH (08:38)
[2017-08-03] MEDS ORDERED: ESTRADIOL 1 MG PO SCH (09:00)
[2017-08-03] MEDS: VANCOMYCIN 750 MG in SODIUM CHLORIDE 250 ML IV SCH ×2 (09:41→21:00)
[2017-08-03] MEDS ORDERED: FLONASE NAS PRN (16:06)
[2017-08-03] MEDS: FLONASE NAS SCH (21:00)
[2017-08-03] MEDS ORDERED: NON-FORMULARY MEDICATION (Fluticasone Propionate [Flonase Allergy Relief] 2 SPRAY) NS SCH (21:00)
[2017-08-03] MEDS: LIPITOR PO SCH (21:01)
[2017-08-03] MEDS: TRIGLIDE PO SCH (21:01)
[2017-08-03] MEDS: DESYREL PO SCH (21:01)
[2017-08-03] MEDS: LANTUS SUBCUT SCH (21:09)
[2017-08-04] MEDS ORDERED: TORADOL IVP PRN (02:20)
[2017-08-04] MEDS: SYNTHROID PO SCH (05:34)
[2017-08-04] MEDS: LASIX TAB PO SCH (05:34)
[2017-08-04] MEDS: PRILOSEC PO SCH ×2 (05:36→17:38)
[2017-08-04] MEDS: HUMALOG SUBCUT SCH ×3 (08:07→17:38)
[2017-08-04] MEDS: ROCEPHIN 1 GM in SODIUM CHLORIDE 50 ML IV SCH (08:08)
[2017-08-04] MEDS: MIRALAX PO SCH (08:09)
[2017-08-04] MEDS: ESTRADIOL PO SCH (08:09)
[2017-08-04] MEDS: JARDIANCE PO SCH (08:09)
[2017-08-04] MEDS: GLUCOPHAGE PO SCH ×2 (08:09→17:38)
[2017-08-04] MEDS: PLAVIX PO SCH (08:09)
[2017-08-04] MEDS: LOVENOX SUBCUT SCH (08:10)
[2017-08-04] MEDS: OMEGA-3 FISH OIL PO SCH ×3 (08:10→17:38)
[2017-08-04] MEDS: LYRICA PO SCH ×3 (08:10→20:43)
[2017-08-04] MEDS: HYDROCHLOROTHIAZIDE PO SCH (08:10)
[2017-08-04] MEDS: ROBAXIN PO SCH ×3 (08:10→20:36)
[2017-08-04] MEDS: VANCOMYCIN 750 MG in SODIUM CHLORIDE 250 ML IV SCH ×3 (09:20→20:35)
[2017-08-04] MEDS: FLONASE NAS SCH (20:35)
[2017-08-04] MEDS: LIPITOR PO SCH (20:36)
[2017-08-04] MEDS: LANTUS SUBCUT SCH (20:36)
[2017-08-04] MEDS: DESYREL PO SCH (20:37)
[2017-08-04] MEDS: TRIGLIDE PO SCH (20:37)
[2017-08-05] MEDS: PRILOSEC PO SCH ×2 (05:29→17:28)
[2017-08-05] MEDS: LASIX TAB PO SCH (05:29)
[2017-08-05] MEDS: SYNTHROID PO SCH (05:29)
[2017-08-05] MEDS: ROCEPHIN 1 GM in SODIUM CHLORIDE 50 ML IV SCH (08:12)
[2017-08-05] MEDS: MIRALAX PO SCH (08:12)
[2017-08-05] MEDS: GLUCOPHAGE PO SCH ×2 (08:13→17:28)
[2017-08-05] MEDS: OMEGA-3 FISH OIL PO SCH ×3 (08:13→17:28)
[2017-08-05] MEDS: LYRICA PO SCH ×3 (08:14→21:08)
[2017-08-05] MEDS: JARDIANCE PO SCH (08:14)
[2017-08-05] MEDS: HYDROCHLOROTHIAZIDE PO SCH (08:14)
[2017-08-05] MEDS: ROBAXIN PO SCH ×3 (08:14→21:08)
[2017-08-05] MEDS: PLAVIX PO SCH (08:14)
[2017-08-05] MEDS: ESTRADIOL PO SCH (08:14)
[2017-08-05] MEDS: HUMALOG SUBCUT SCH ×3 (08:17→17:29)
[2017-08-05] MEDS: LOVENOX SUBCUT SCH (08:18)
[2017-08-05] MEDS: BACTRIM DS 800/160 MG PO SCH ×2 (08:56→21:07)
[2017-08-05] MEDS: LIPITOR PO SCH (21:06)
[2017-08-05] MEDS: TRIGLIDE PO SCH (21:07)
[2017-08-05] MEDS: FLONASE NAS SCH (21:07)
[2017-08-05] MEDS: DESYREL PO SCH (21:08)
[2017-08-05] MEDS: LANTUS SUBCUT SCH (21:08)
[2017-08-06] MEDS: TYLENOL PO PRN (04:59)
[2017-08-06] MEDS: LASIX TAB PO SCH (05:29)
[2017-08-06] MEDS: SYNTHROID PO SCH (05:29)
[2017-08-06] MEDS: PRILOSEC PO SCH ×2 (05:29→17:56)
[2017-08-06] MEDS ORDERED: IMODIUM PO PRN (08:41)
[2017-08-06] MEDS: GLUCOPHAGE PO SCH ×2 (09:01→17:56)
[2017-08-06] MEDS: ESTRADIOL PO SCH (09:01)
[2017-08-06] MEDS: JARDIANCE PO SCH (09:01)
[2017-08-06] MEDS: BACTRIM DS 800/160 MG PO SCH ×2 (09:01→21:09)
[2017-08-06] MEDS: OMEGA-3 FISH OIL PO SCH ×3 (09:01→18:00)
[2017-08-06] MEDS: PLAVIX PO SCH (09:02)
[2017-08-06] MEDS: HYDROCHLOROTHIAZIDE PO SCH (09:02)
[2017-08-06] MEDS: ROBAXIN PO SCH ×3 (09:02→21:09)
[2017-08-06] MEDS: MIRALAX PO SCH (09:02)
[2017-08-06] MEDS: HUMALOG SUBCUT SCH ×3 (09:03→17:56)
[2017-08-06] MEDS: LOVENOX SUBCUT SCH (09:29)
[2017-08-06] MEDS: LYRICA PO SCH ×3 (09:30→21:09)
[2017-08-06] MEDS ORDERED: TORADOL IM PRN (19:33)
[2017-08-06] MEDS: LANTUS SUBCUT SCH (21:07)
[2017-08-06] MEDS: FLONASE NAS SCH (21:07)
[2017-08-06] MEDS: TRIGLIDE PO SCH (21:09)
[2017-08-06] MEDS: DESYREL PO SCH (21:09)
[2017-08-06] MEDS: LIPITOR PO SCH (21:09)
[2017-08-07] MEDS: PRILOSEC PO SCH ×2 (05:58→17:14)
[2017-08-07] MEDS: LASIX TAB PO SCH (05:58)
[2017-08-07] MEDS: SYNTHROID PO SCH (05:58)
[2017-08-07] MEDS: PLAVIX PO SCH (08:37)
[2017-08-07] MEDS: LYRICA PO SCH ×3 (08:37→20:59)
[2017-08-07] MEDS: ROBAXIN PO SCH ×3 (08:37→20:59)
[2017-08-07] MEDS: ESTRADIOL PO SCH (08:37)
[2017-08-07] MEDS: JARDIANCE PO SCH (08:38)
[2017-08-07] MEDS: BACTRIM DS 800/160 MG PO SCH ×2 (08:38→20:59)
[2017-08-07] MEDS: OMEGA-3 FISH OIL PO SCH ×3 (08:38→17:14)
[2017-08-07] MEDS: GLUCOPHAGE PO SCH ×2 (08:38→17:14)
[2017-08-07] MEDS: HUMALOG SUBCUT SCH ×3 (08:38→17:29)
[2017-08-07] MEDS: LOVENOX SUBCUT SCH (08:45)
[2017-08-07] MEDS: MIRALAX PO SCH (08:45)
[2017-08-07] MEDS: HYDROCHLOROTHIAZIDE PO SCH (08:46)
[2017-08-07] MEDS: LANTUS SUBCUT SCH (20:55)
[2017-08-07] MEDS: FLONASE NAS SCH (20:58)
[2017-08-07] MEDS: LIPITOR PO SCH (20:59)
[2017-08-07] MEDS: DESYREL PO SCH (20:59)
[2017-08-07] MEDS: TRIGLIDE PO SCH (20:59)
[2017-08-08 05:38] VITALS: BP 123/66; TEMP 97.9
[2017-08-08] MEDS: TYLENOL PO PRN (05:54)
[2017-08-08] MEDS: LASIX TAB PO SCH (05:54)
[2017-08-08] MEDS: SYNTHROID PO SCH (05:54)
[2017-08-08] MEDS: PRILOSEC PO SCH (05:54)
[2017-08-08] MEDS: BACTRIM DS 800/160 MG PO SCH (09:25)
[2017-08-08] MEDS: LYRICA PO SCH (09:25)
[2017-08-08] MEDS: GLUCOPHAGE PO SCH (09:25)
[2017-08-08] MEDS: JARDIANCE PO SCH (09:26)
[2017-08-08] MEDS: ROBAXIN PO SCH (09:26)
[2017-08-08] MEDS: PLAVIX PO SCH (09:26)
[2017-08-08] MEDS: HYDROCHLOROTHIAZIDE PO SCH (09:26)
[2017-08-08] MEDS: ESTRADIOL PO SCH (09:27)
[2017-08-08] MEDS: HUMALOG SUBCUT SCH (09:27)
[2017-08-08] MEDS: OMEGA-3 FISH OIL PO SCH (09:27)
[2017-08-08] MEDS: MIRALAX PO SCH (09:27)
[2017-08-08] MEDS: LOVENOX SUBCUT SCH (09:28)
--- NOTE | 2017-08-27 15:21 | PN ---
DATE OF SERVICE: 08/03/17 SUBJECTIVE: The patient was admitted with the left middle toe cellulitis and a deep cut to the plantar aspect. Wound looks more dry today. There was some drainage yesterday, which was sent for the culture. The patient has been started on the Rocephin and the Vancomycin. The ESR is normal. X-ray did not show any deep infection at this time. She is still hurting. No fever or chills , PND or orthopnea. REVIEW OF SYSTEMS: CONSTITUTIONAL: No fever, no chills. HEENT: Normal. ENDOCRINE: No weight gain, no weight loss. CVS: No angina symptoms. No CHF symptoms. No palpitations. No atypical chest pain for CAD. No shortness of breath. No PND, no orthopnea. RESPIRATORY: No cough, no hemoptysis. GI: No nausea, no vomiting. No abdominal pain. : No hematuria. No polyuria. MUSCULOSKELETAL: No joint swelling. PSYCHIATRIC: Not anxious. No depression. No suicidal thoughts. No homicidal thoughts. SKIN: Middle toe cellulitis and deep cut to the plantar aspect. PHYSICAL EXAMINATION: V/S: Blood pressure is 147/75, respiratory rate 16, heart rate 71, temperature 97.0, saturation is 96 on 2 liters. HEENT: Normocephalic, atraumatic. Mucosa dry. NECK: Supple. No JVD, no carotid bruit. No lymphadenopathy. LUNGS: Clear to auscultation. No rales or rhonchi. HEART: S1, S2 normal. No S3. No murmur, gallop or regurgitation. ABDOMEN: Soft, nontender. Bowel sounds active. No rigidity. No rebound or guarding. No CVA tenderness. EXTREMITIES: Left third toe redness and swelling is present on the dorsal aspect and the plantar aspect. There is almost 1 cm deep cut, which is looking very dry today. It is tender to touch. 2+ leg edema. No clubbing or cyanosis MUSCULOSKELETAL: No joint swelling. NEUROLOGIC: Awake, alert, oriented times three. No focal deficit. LYMPHATIC: No lymph nodes palpable. SKIN: Intact. LABS: Sodium 140, potassium 3.6, chloride 100, bicarb 28, BUN 29, creatinine 0.76, white count 7.66, hemoglobin 12.5, hematocrit 38.3, platelet count 352. ASSESSMENT: 1. LEFT MIDDLE TOE CELLULITIS WITH A DEEP WOUND 2. DIABETES 3. HYPERTENSION 4. DYSLIPIDEMIA 5. LEG EDEMA 6. CORONARY ARTERY DISEASE, STATUS POST STENT IN DECEMBER 2016 7. SLEEP APNEA, ON C-PAP PLAN: 1. Continue the accuchecks with the coverage. 2. Rocephin and Vancomycin. TIME SPENT: More than 35 minutes MTDD
--- NOTE | 2017-09-01 14:20 | PN ---
DATE OF SERVICE: 08/04/17 SUBJECTIVE: The patient was admitted with left middle toe cellulitis and an open wound. No osteomyelitis. Wound cultures became positive for the MRSA and Proteus. The patient in on Rocephin and Vancomycin and both are covering it good. As of now, we are doing the wet to dry dressing. No drainage at this time. PHYSICAL EXAMINATION: V/S: Blood pressure 114/59, respiratory rate is 20, heart rate 72, temperature 97.0, saturation 96 on 2 liters. HEENT: Normocephalic, atraumatic. Mucosa dry. NECK: Supple. No JVD, no carotid bruit. No lymphadenopathy. LUNGS: Clear to auscultation. No rales or rhonchi. HEART: S1, S2 normal. No S3. No murmur, gallop or regurgitation. ABDOMEN: Soft, nontender. Bowel sounds active. No rigidity. No rebound or guarding. No CVA tenderness. EXTREMITIES: Left foot, third toe redness and swelling is better. The open wound on the plantar aspect is dry looking No drainage. Tender to touch 1+ leg edema. No clubbing or cyanosis MUSCULOSKELETAL: No joint swelling. NEUROLOGIC: Awake, alert, oriented times three. No focal deficit. LYMPHATIC: No lymph nodes palpable. SKIN: Intact. LABS: White count is 6.63, hemoglobin 13.0, hematocrit 40, platelet count is 373. Sodium 138, potassium 4.0, chloride 98, bicarb 30, BUN 21, creatinine 0.83 , glucose 131. ASSESSMENT: 1. LEFT THIRD TOE CELLULITIS WITH AN OPEN WOUND. THE WOUND CULTURE IS GROWING STAPH AUREUS AND PROTEUS. 2. HISTORY OF DIABETES 3. HYPERTENSION 4. CORONARY ARTERY DISEASE 5. OBESITY 6. OSTEOARTHRITIS 7. SLEEP APNEA ON C-PAP PLAN: 1. Continue the Rocephin, Vancomycin. 2. Keep the legs elevated with wet to dry dressing. 3. Accuchecks with the coverage. TIME SPENT: More than 35 minutes MTDD
--- NOTE | 2017-09-01 14:31 | PN ---
DATE OF SERVICE: 08/06/17 SUBJECTIVE: The patient's blood sugar dropped to 66, but she was asymptomatic. The leg edema is better. Left toe wound is healing well. No drainage at this time. Initially the patient been having diarrhea, two to three times. Some abdominal cramping. No fever or chills. In view of the risk of dehydration, the patient will be monitored one more day before sending home. PHYSICAL EXAMINATION: V/S: Blood pressure 125/64, respiratory rate 18, heart rate 74, temperature 97.7 , saturation normal. HEENT: Normocephalic, atraumatic. Mucosa dry. NECK: Supple. No JVD, no carotid bruit. No lymphadenopathy. LUNGS: Clear to auscultation. No rales or rhonchi. HEART: S1, S2 normal. No S3. No murmur, gallop or regurgitation. ABDOMEN: Soft, nontender. Bowel sounds active. No rigidity. No rebound or guarding. No CVA tenderness. EXTREMITIES: Left toe wound on the palmar aspect is healing well and healthy granulation tissue. Some tenderness on palpation. Redness on the dorsum of the third toe is resolved. No pedal edema. No clubbing or cyanosis MUSCULOSKELETAL: No joint swelling. NEUROLOGIC: Awake, alert, oriented times three. No focal deficit. LYMPHATIC: No lymph nodes palpable. SKIN: Intact. LABS: white count is 6.89, hemoglobin 12.9, hematocrit 40.2, platelet count 374 , sodium 139, potassium 4.1, chloride 99, bicarb 28, BUN 21, creatinine 0.84, glucose 78. ASSESSMENT: 1. LEFT THIRD TOE CELLULITIS WITH AN OPEN WOUND. MRSA AND PROTEUS MIRABILIS. SENSITIVITY FOR THE BACTRIM DS. 2. HYPOGLYCEMIA 3. DIABETES 4. HYPERTENSION 5. CORONARY ARTERY DISEASE, STATUS POST STENT 6. DEPENDENT LEG EDEMA 7. OBESITY 8. TWO TO THREE EPISODES OF DIARRHEA PLAN: 1. Continue the Bactrim DS. 2. Continue Accuchecks as the patient had a hypoglycemic episode. 3. The patient will be monitored one more day in veiw of the diarrhea and risk of dehydration. TIME SPENT: More than 35 minutes MTDD
--- NOTE | 2017-09-01 14:53 | PN ---
DATE OF SERVICE: 08/07/17 SUBJECTIVE: Left foot wound is getting better. Left middle third toe is still red on the dorsum. Blood sugars are better. No diarrhea. No nausea or vomiting. REVIEW OF SYSTEMS: CONSTITUTIONAL: No fever, no chills. HEENT: Normal. ENDOCRINE: No weight gain, no weight loss. CVS: No angina symptoms. No CHF symptoms. No palpitations. No atypical chest pain for CAD. No shortness of breath. No PND, no orthopnea. RESPIRATORY: No cough, no hemoptysis. GI: No nausea, no vomiting. No abdominal pain. : No hematuria. No polyuria. MUSCULOSKELETAL: No joint swelling. PSYCHIATRIC: Not anxious. No depression. No suicidal thoughts. No homicidal thoughts. SKIN: Intact. No rash. PHYSICAL EXAMINATION: V/S: Blood pressure 130/72, respiratory rate 18, heart rate 95, temperature 98.0 , saturation 95. HEENT: Normocephalic, atraumatic. Mucosa dry. NECK: Supple. No JVD, no carotid bruit. No lymphadenopathy. LUNGS: Clear to auscultation. No rales or rhonchi. HEART: S1, S2 normal. No S3. No murmur, gallop or regurgitation. ABDOMEN: Soft, nontender. Bowel sounds active. No rigidity. No rebound or guarding. No CVA tenderness. EXTREMITIES: Left third toe dorsum is still red on the plantar aspect. The cut area is really healing good with the granulation tissue cannot be open now. Seems like it is sticking the wound together. Slight tenderness on palpation. No pedal edema. No clubbing or cyanosis MUSCULOSKELETAL: No joint swelling. NEUROLOGIC: Awake, alert, oriented times three. No focal deficit. LYMPHATIC: No lymph nodes palpable. SKIN: Intact. LABS: White count 6.89, hemoglobin 12.9, hematocrit 40.2, platelet count 374, sodium 139, potassium 4.1, chloride 99, bicarb 28, BUN 71, creatinine 0.84, glucose 78. ASSESSMENT: 1. LEFT THIRD TOE CELLULITIS WITH THE PLANTAR ASPECT DEEP WOUND, STAPH, MRSA AND PROTEUS MIRABILIS ARE POSITIVE. 2. DIABETES 3. HYPERTENSION 4. DEPENDENT EDEMA 5. CORONARY ARTERY DISEASE, STATUS POST STENT 6. DEPRESSION 7. ANXIETY PLAN: 1. Continue the Bactrim DS. 2. Accuchecks with the coverage. 3. Out of bed to chair. 4. Wet to dry dressing. 5. Discharge plan has been discussed with the patient. The patient is comfortable going home. We will be discharging in the morning. TIME SPENT: More than 35 minutes KLEVER
--- NOTE | 2017-09-01 15:15 | DS ---
DATE OF SERVICE: 08/08/17 FINAL DIAGNOSIS: 1. LEFT THIRD TOE CELLULITIS WITH A DEEP WOUND, MRSA POSITIVE AND PROTEUS MIRABILIS POSITIVE. 2. HISTORY OF DIABETES. A1C 9.0. 3. HYPERTENSION 4. DYSLIPIDEMIA 5. CORONARY ARTERY DISEASE, STATUS POST STENT 01/06/2017 6. SLEEP APNEA, ON C-PAP 7. DEPENDENT LEG EDEMA 8. GERD 9. 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 HYPOTHYROIDISM 11. APPENDECTOMY 12. 13. DENTAL EXTRACTION 14. HERNIA REPAIR 15. SINUS SURGERY PLAN: 1. Discharge the patient home. 2. New medications: Bactrim DS twice a day for 7 more days. 3. Increase hydration. 4. Continue home medications: Nitroglycerin prn, Atorvastatin, Plavix, Jardiance, Estradiol, Repatha, Triglide, Flonase, Lasix, Hydrochlorothiazide, NovoLog, Lantus, Levothyroxine, Metformin, Robaxin, [place] 3, Prilosec, MiraLAX, Pregabalin and Trazodone. 5. Diet: 1800 ADA diet. 6. Activity: As much as tolerated. 7. Keep the legs elevated when resting. 8. Wet to dry dressing of the left third toe discussed with the patient in detail. DISEASE SPECIFIC EDUCATION: About the diabetic foot ulcers, risk of osteomyelitis and foot amputation were discussed and she verbalized understanding. HOSPITAL COURSE: Indigo Dutta, who is a 56 year old female, came to the office for the left third toe redness with swelling and pain. On examination, on the plantar aspect of the toe there is an open wound deep enough that I can see the tendons and this was draining the pus. At that time, with a diabetic foot wound, the patient was admitted directly from the office to the hospital. She was started on the IV antibiotics of Rocephin and Vancomycin. Cultures were obtained. Potassium was 3.2, which was replaced. Sugars were in control. Leg edema was present, for which Lasix was given. Initially, we did the dry dressing. Cultures were showing the staph aureus, which was MRSA and Proteus Mirabilis, which was sensitive to the Bactrim DS. At that time, ordered antibiotics changed to oral. Gradually, the wound started healing from inside out with healthy granulation tissue. Redness and swelling of the third toe was decreasing. ESR was normal. X-ray of the toe did not show any osteomyelitis or any signs of osteomyelitis. The patient is up and about walking. Swelling and redness of getting better and the plantar aspect of the toe was healing from inside out by itself. It did not need any sutures or any surgery. The patient did have a hypoglycemic episode, which resolved by the next day. She had diarrhea, which did not sustain and there was no elevated white count or abdominal pain, so it was not assumed to be serious at this time. As the patient is symptom free today, the patient is being discharged to home to follow up at the [facility] within 5-7 days. TIME SPENT: MORE THAN 65 MINUTES KLEVER
--- NOTE | 2017-09-02 11:12 | PN ---
DATE OF SERVICE: 08/05/17 SUBJECTIVE: The patient was admitted with the left third toe open wound and cellulitis. It did grow MRSA and Proteus. The swelling and redness is getting better. It still has some tenderness. Otherwise, no fever or chills. REVIEW OF SYSTEMS: CONSTITUTIONAL: No fever, no chills. HEENT: Normal. ENDOCRINE: No weight gain, no weight loss. CVS: No angina symptoms. No CHF symptoms. No palpitations. No atypical chest pain for CAD. No shortness of breath. No PND, no orthopnea. RESPIRATORY: No cough, no hemoptysis. GI: No nausea, no vomiting. No abdominal pain. : No hematuria. No polyuria. MUSCULOSKELETAL: No joint swelling. PSYCHIATRIC: Not anxious. No depression. No suicidal thoughts. No homicidal thoughts. SKIN: Intact. No rash. PHYSICAL EXAMINATION: V/S: Blood pressure 100/57, respiratory rate 16, heart rate 72, temperature 97.7 , saturation 96. HEENT: Normocephalic, atraumatic. Mucosa dry. NECK: Supple. No JVD, no carotid bruit. No lymphadenopathy. LUNGS: Clear to auscultation. No rales or rhonchi. HEART: S1, S2 normal. No S3. No murmur, gallop or regurgitation. ABDOMEN: Soft, nontender. Bowel sounds active. No rigidity. No rebound or guarding. No CVA tenderness. EXTREMITIES: Left third toe, dorsally the redness and swelling are better on the plantar aspect the open wound is almost 0.5 to 1 cm deep across the toe. It is tender to touch. Not warm to touch and no drainage. No pedal edema. No clubbing or cyanosis MUSCULOSKELETAL: No joint swelling. NEUROLOGIC: Awake, alert, oriented times three. No focal deficit. LYMPHATIC: No lymph nodes palpable. SKIN: Intact. LABS: White count 6.63, hemoglobin 13.0, hematocrit 40.0, platelet count 373, sodium 138, potassium 4.0, chloride 98, bicarb 30, BUN 21, creatinine 0.83, glucose 131. ASSESSMENT: 1. LEFT THIRD TOE CELLULITIS WITH DEEP OPEN WOUND. NO OSTEOMYELITIS AT THIS TIME PER X-RAY AND THE ESR IS NORMAL. 2. DIABETES, LABILE 3. HYPERTENSION 4. DYSLIPIDEMIA 5. CORONARY ARTERY DISEASE 6. DEPENDENT LEG EDEMA 7. OBESITY PLAN: 1. Stop the Vancomycin and Rocephin. 2. Will start the Bactrim DS. 3. Try to at least keep the wound dry. 4. Out of bed to chair. 5. Activity as tolerated. TIME SPENT: More than 35 minutes MTDD
== END 2017-08-08 09:45 | disposition home or self-care (01) | DRG 603 ==
LOC: MEDSURG A 10:39
PROVIDERS: ADMIT Emergency Medicine; ATTEND Emergency Medicine
DX: L03.032 Cellulitis of left toe (principal); L97.425 Non-pressure chronic ulcer of left heel and midfoot with muscle involvement without evidence of necrosis; E11.621 Type 2 diabetes mellitus with foot ulcer; B95.62 Methicillin resistant Staphylococcus aureus infection as the cause of diseases classified elsewhere; B96.4 Proteus (mirabilis) (morganii) as the cause of diseases classified elsewhere; I10 Essential (primary) hypertension; E78.5 Hyperlipidemia, unspecified; I25.10 Atherosclerotic heart disease of native coronary artery without angina pectoris; R60.0 Localized edema; K21.9 Gastro-esophageal reflux disease without esophagitis; E66.9 Obesity, unspecified; E03.9 Hypothyroidism, unspecified; G47.30 Sleep apnea, unspecified; M47.896 Other spondylosis, lumbar region; R19.7 Diarrhea, unspecified; E11.649 Type 2 diabetes mellitus with hypoglycemia without coma; Z79.4 Long term (current) use of insulin; Z79.84 Long term (current) use of oral hypoglycemic drugs; Z79.899 Other long term (current) drug therapy; Z16.11 Resistance to penicillins; Z95.5 Presence of coronary angioplasty implant and graft; Z99.89 Dependence on other enabling machines and devices
CPT/HCPCS: 36415; 80053; 80202; 82962; 85025; 85651; 87070; 87186; 87493

== ENCOUNTER 2017-10-22 10:35 | Outpatient (CLI) | payer OTHER | END 2017-10-22 10:36 | disposition home or self-care (01) | LOC: RHC-LAB 10:35 | PROVIDERS: ATTEND Emergency Medicine | DX: E11.9 Type 2 diabetes mellitus without complications (principal); E78.5 Hyperlipidemia, unspecified | CPT/HCPCS: 36415; 80053; 80061; 83036; 84443 ==

== ENCOUNTER 2018-01-17 07:04 | Outpatient (CLI) | END 2018-01-17 07:05 | disposition home or self-care (01) | LOC: LAB 07:04 | PROVIDERS: ATTEND Emergency Medicine | DX: E11.9 Type 2 diabetes mellitus without complications (principal); E78.5 Hyperlipidemia, unspecified | CPT/HCPCS: 36415; 80053; 80061; 83036; 84443; 85025 ==

== ENCOUNTER 2018-01-18 13:13 | Outpatient (RCR) | payer OTHER | END 2018-01-28 23:59 | LOC: NEWBEG 13:13 | PROVIDERS: ATTEND Psychiatry & Neurology Psychiatry | DX: Z00.8 Encounter for other general examination (principal) ==

== ENCOUNTER 2018-02-16 10:00 | Outpatient (RCR) | payer OTHER ==
[2018-02-03 09:59] VITALS: BMI 42.0
== END 2018-02-27 23:59 ==
LOC: NEWBEG 10:00
PROVIDERS: ATTEND Psychiatry & Neurology Psychiatry
DX: F32.1 Major depressive disorder, single episode, moderate (principal); F41.9 Anxiety disorder, unspecified
CPT/HCPCS: 90792; 90853

== ENCOUNTER 2018-03-07 15:02 | Outpatient (CLI) ==
[2018-02-03 09:59] VITALS: BMI 42.0
== END 2018-03-07 15:03 | disposition home or self-care (01) ==
LOC: RHC-LAB 15:02
PROVIDERS: ATTEND Nurse Practitioner Family
DX: R30.0 Dysuria (principal); Z87.440 Personal history of urinary (tract) infections
CPT/HCPCS: 81001; 87086

== ENCOUNTER 2018-03-25 10:00 | Outpatient (RCR) ==
[2018-02-03 09:59] VITALS: BMI 42.0
== END 2018-03-30 23:59 ==
LOC: NEWBEG 10:00
PROVIDERS: ATTEND Psychiatry & Neurology Psychiatry
DX: F32.1 Major depressive disorder, single episode, moderate (principal); F41.9 Anxiety disorder, unspecified
CPT/HCPCS: 90853; 99213; 99214

== ENCOUNTER 2018-05-18 10:00 | Outpatient (RCR) ==
[2018-02-03 09:59] VITALS: BMI 42.0
== END 2018-05-30 23:59 ==
LOC: NEWBEG 10:00
PROVIDERS: ATTEND Psychiatry & Neurology Psychiatry
DX: F32.1 Major depressive disorder, single episode, moderate (principal); F41.9 Anxiety disorder, unspecified
CPT/HCPCS: 90853; 99213

== ENCOUNTER 2018-06-14 10:00 | Outpatient (CLI) ==
[2018-02-03 09:59] VITALS: BMI 42.0
--- NOTE | 2018-06-14 10:40 | DI ---
EXAM: Two views of the chest. History: Short of breath Comparison: Chest radiograph 03/18/2017 Findings: Heart size is normal. No focal consolidation. No appreciable pleural fluid and no pneumo thorax. No acute osseous abnormalities. Impression: No acute cardiopulmonary process
== END 2018-06-14 10:01 | disposition home or self-care (01) ==
LOC: RAD 10:00
PROVIDERS: ATTEND Nurse Practitioner Family
DX: R06.02 Shortness of breath (principal)
CPT/HCPCS: 93005; 93010

== ENCOUNTER 2018-06-22 06:25 | Outpatient (CLI) | payer OTHER ==
[2018-02-03 09:59] VITALS: BMI 42.0
--- NOTE | 2018-06-22 12:10 | MAMMO ---
EXAM: Digital screening mammogram with tomosynthesis HISTORY: Screening COMPARISON: 02/25/2017 FINDINGS: Digital MLO and CC views of the right and left breast were performed. Tomosynthesis was performed. Computer aided detection utilized. There are scattered fibroglandular densities. There is no evidence for mass, asymmetry, distortion, or suspicious calcifications in either breast. IMPRESSION: 1. No evidence of malignancy in the right or left breast. 2. Annual screening mammogram is recommended in one year. BIRADS category 1, negative examination
== END 2018-06-22 06:26 | disposition home or self-care (01) ==
LOC: RAD 06:25
PROVIDERS: ATTEND Nurse Practitioner Family
DX: Z12.31 Encounter for screening mammogram for malignant neoplasm of breast (principal); E11.9 Type 2 diabetes mellitus without complications; E66.9 Obesity, unspecified; E03.9 Hypothyroidism, unspecified; E78.5 Hyperlipidemia, unspecified; F32.1 Major depressive disorder, single episode, moderate; F41.9 Anxiety disorder, unspecified
CPT/HCPCS: 36415; 80053; 80061; 83036; 84443; 85025; 90853

== ENCOUNTER 2018-06-24 10:00 | Outpatient (RCR) ==
[2018-02-03 09:59] VITALS: BMI 42.0
== END 2018-06-30 23:59 ==
LOC: NEWBEG 10:00
PROVIDERS: ATTEND Psychiatry & Neurology Psychiatry
DX: F32.1 Major depressive disorder, single episode, moderate (principal); F41.9 Anxiety disorder, unspecified
CPT/HCPCS: 90853; 99213

== ENCOUNTER 2018-07-08 15:25 | Outpatient (CLI) | payer OTHER ==
[2018-02-03 09:59] VITALS: BMI 42.0
== END 2018-07-08 15:26 | disposition home or self-care (01) ==
LOC: RHC-LAB 15:25
PROVIDERS: ATTEND Nurse Practitioner Family
DX: R05 Cough (principal)
CPT/HCPCS: 87502

== ENCOUNTER 2018-07-25 10:00 | Outpatient (RCR) ==
[2018-02-03 09:59] VITALS: BMI 42.0
== END 2018-07-28 23:59 ==
LOC: NEWBEG 10:00
PROVIDERS: ATTEND Psychiatry & Neurology Psychiatry
DX: F32.1 Major depressive disorder, single episode, moderate (principal); F41.9 Anxiety disorder, unspecified
CPT/HCPCS: 90853

== ENCOUNTER 2018-07-29 10:00 | Outpatient (RCR) ==
[2018-02-03 09:59] VITALS: BMI 42.0
== END 2018-08-28 23:59 ==
LOC: NEWBEG 10:00
PROVIDERS: ATTEND Psychiatry & Neurology Psychiatry
DX: F32.1 Major depressive disorder, single episode, moderate (principal); F41.9 Anxiety disorder, unspecified
CPT/HCPCS: 90853; 99213

== ENCOUNTER 2018-08-11 12:48 | Emergency (ER) | payer OTHER ==
[2018-08-11 12:58] VITALS: BP 144/76; TEMP 98.8; BMI 41.0
[2018-08-11] MEDS ORDERED: TORADOL IM STA (14:24)
[2018-08-11] MEDS ORDERED: ZANAFLEX PO STA (14:25)
--- NOTE | 2018-08-11 14:28 | ED.PDOC ---
General ED Provider: Dr. JAMEEL POLANCO Chief Complaint: Back Pain Stated Complaint: Low back pain-strained when getting out of bed yesterday Time Seen by Physician: 13:30 Mode of Arrival: Walk-In Information Source: Patient Exam Limitations: Clinical condition Primary Care Provider: KYMBERLY CAROLINA Nursing and Triage Documentation Reviewed and Agree: Yes Does patient meet sepsis criteria?: No System Inflammatory Response Syndrome: Not Applicable Sepsis Protocol: For patient's 13 years and over: Temp is 96.8 and below OR 101 and greater Pulse >90 BPM Resp >20/minute Acutely Altered Mental Status Are patient's symptoms suggestive of a new infection, such as: -Pneumonia -Skin, Soft Tissue -Endocarditis -UTI -Bone, Joint Infection -Implantable Device -Acute Abdominal Infection -Wound Infection -Meningitis -Blood Stream Catheter Infection -Unknown Musculoskeletal Complaint Exam - Back Pain Complaint/Exam Mechanism of Injury: Reports: No known trauma Onset/Duration: 24 hr Symptoms Are: Still present Timing: Intermittent Episodes Lasting: Hours Initial Severity: Moderate Current Severity: Moderate Location: Reports: Discrete Character: Reports: Sharp, Aching, Spasmodic, Stiffness Aggravating: Reports: Movements Alleviating: Reports: Rest, Position Associated Signs and Symptoms: Denies: Swelling, Redness, Bruising, Fever, Weakness, Numbness, Tingling, Abdominal pain, Flank pain, Bladder incontinence, Bowel incontinence, Weight loss, Pain with weight bearing TAD Risk Factors: Reports: None AAA Risk Factors: Reports: None Cauda Equina Risk Factors: Reports: None Epidural Abcess Risk Factors: Reports: None Related Surgical History: Reports: Back Surgery Focal Tenderness: Yes Paraspinal Muscle Tenderness: Yes Paraspinal Muscle Spasm: Yes Scoliosis: No Lordosis: No Kyphosis: No SLR Test: Right Negative, Left Negative Hip Motion Testing Pain: Right Negative, Left Negative Focal Weakness: Present: None Focal Sensory Loss: Present: None Gait: Present: Unsteady Differential Diagnoses: Arthritis, Strain, Sprain Review of Systems - Review Of Systems Constitutional: Reports: No symptoms Eyes: Reports: No symptoms Ears, Nose, Mouth, Throat: Reports: No symptoms Respiratory: Reports: No symptoms Cardiac: Reports: No symptoms GI: Reports: No symptoms : Reports: No symptoms Musculoskeletal: Reports: Back pain Skin: Reports: No symptoms Neurological: Reports: No symptoms Endocrine: Reports: No symptoms Hematologic/Lymphatic: Reports: No symptoms All Other Systems: Reviewed and Negative Past Medical History - Past Medical History Previously Healthy: No Endocrine: Reports: Hypothyroid Cardiovascular: Reports: Hypertension Respiratory: Reports: COPD, Asthma Hematological: Reports: None Gastrointestinal: Reports: GERD, Liver (fatty liver) Genitourinary: Reports: None Neuro/Psych: Reports: Depression Musculoskeletal: Reports: None Cancer: Reports: None Last Menstrual Period: hysterectomy Other Pertinent Past Medical History: SLEEP APNEA - Surgical History General Surgical History: Reports: Hysterectomy, (HERNIA REPAIR AND C- SECTION), Appendectomy, Cholecystectomy, Tonsillectomy, Adenoidectomy, Back Surgery, Other (CATARACT SURGERY BILITERALLY, ) - Family History Family History: Reports: Unknown - Social History Smoking Status: Never smoker Hx Substance Use: No Alcohol Screening: None Physical Exam - Physical Exam Appearance: Obese Ill-appearing: None Pain Distress: Moderate Eyes: STEVEN, EOMI, Conjunctiva clear ENT: Ears normal, Nose normal, Oropharynx normal Neck: Supple Respiratory: Airway patent, Breath sounds clear, Breath sounds equal, Respirations nonlabored Cardiovascular: RRR, Pulses normal, No rub, No murmur GI/: Soft, Nontender, No masses, Bowel sounds normal, No Organomegaly Musculoskeletal: Normal strength, No edema, No calf tenderness, Limited ROM Skin: Warm, Dry, Normal color Neurological: Sensation intact, Motor intact, Reflexes intact, Cranial nerves intact, Alert, Oriented Interpretation - Radiology Interpretation Radiology Interpretation By: Radiologist Exam Interpreted: CT Scan (lumbar spine-chronic changes-fusion hardware intact) Critical Care Note - Critical Care Note Total Time (mins): 0 Course - Course Orders, Labs, Meds: Orders Category Date Time Status Ketorolac Tromethamine [Toradol] MEDS 08/11/18 14:24 Discontinued 30 mg IM ONCE STA Tizanidine HCl [Zanaflex] MEDS 08/11/18 14:25 Discontinued 4 mg PO ONCE STA CT LUMBAR SPINE W/O CONTRAST Stat RADS 08/11/18 14:27 Completed Medications Discontinued Medications Generic Name Dose Route Start Last Admin Trade Name Freq PRN Reason Stop Dose Admin Ketorolac Tromethamine 30 mg 08/11/18 14:24 08/11/18 14:42 Toradol IM 08/11/18 14:25 30 mg ONCE STA Administration Tizanidine HCl 4 mg 08/11/18 14:25 08/11/18 14:44 Zanaflex PO 08/11/18 14:26 4 mg ONCE STA Administration Vital Signs: Temp Pulse Resp BP Pulse Ox 08/11/18 12:49 98.8 F 82 20 144/76 H 93 L Departure - Departure Time of Disposition: 16:00 Disposition: PLACED OBSERVATION Discharge Problem: Acute lumbar myofascial strain, Degenerative disc disease, lumbar Instructions: Low Back Strain (ED), Lower Back Exercises (ED) Condition: Fair Pt referred to PMD for follow-up: Yes IPMP verified?: No Additional Instructions: Remain on existing meds See PCP next week Apply warm moist heat See Pain management Allergies/Adverse Reactions: Allergies No Known Allergies Allergy (Verified 05/15/17 16:24) Home Medications: Ambulatory Orders Metformin HCl 1,000 mg PO BID 02/06/13 Methocarbamol [Robaxin] 500 mg PO TID 03/09/13 Omeprazole [Prilosec] 20 mg PO BID 03/09/13 Nitroglycerin 0.4 mg SL Q5MIN PRN 08/02/17 Metoprolol Tartrate 25 mg PO BID 10/22/17 Oxycodone HCl/Acetaminophen [Percocet 10-325 mg Tablet] 1 each PO QID PRN Tizanidine HCl 4 mg PO TID 02/17/18 Disposition Discussed With: Patient, Family
--- NOTE | 2018-08-11 15:26 | CT ---
EXAM: CT of the lumbar spine without contrast History: Severe left-sided lower back pain. Technique: Multiplanar CT images through the lumbar spine were obtained without the administration o f IV contrast Findings: Atherosclerotic vascular calcifications. The liver is fatty. No acute fracture or subluxation of the lumbar spine. Severe disc space narrowing at L2-L3 with endp late sclerosis, osteophyte formation and a few small endplate erosions. Moderate disc space narrowin g at L1-L2. Mild to moderate disc space narrowing seen elsewhere. Grossly intact posterior fusion h ardware at L3-L4. T12-L1: No significant bony central canal stenosis or bony neural foraminal narrowing. L1-L2: Moderate to large posterior disc osteophyte complex effacing anterior thecal sac with moderat e central canal stenosis asymmetric on the left. Moderate left and mild right bony neural foraminal narrowing secondary to ligamentous and facet hypertrophy. L2-L3: Left paracentral posterior disc osteophyte complex with mild to moderate central canal stenos is. Moderate bilateral bony neural foraminal narrowing secondary to ligamentous and facet hypertroph y. L3-L4: No significant bony central canal stenosis or bony neural foraminal narrowing. L4-L5: No significant bony central canal stenosis. Moderate right and mild left bony neural foramin al narrowing secondary to ligamentous and facet hypertrophy. L5-S1: Small disc bulge effacing anterior thecal sac with mild central canal stenosis. Moderate to severe bilateral bony neural foraminal narrowing secondary to ligamentous and facet hypertrophy. Impression: 1. No acute osseous abnormality of the lumbar spine. 2. Grossly intact posterior fusion hardware. 3. Severe degenerative disc disease at L2-3. 4. Level by level analysis as detailed above. If symptoms persist, recommend further evaluation wit h MRI of the lumbar spine with and without contrast.
== END 2018-08-11 16:34 | disposition home or self-care (01) ==
LOC: ED 12:48
DX: S39.012A Strain of muscle, fascia and tendon of lower back, initial encounter (principal); M51.36 Other intervertebral disc degeneration, lumbar region; X50.1XXA Overexertion from prolonged static or awkward postures, initial encounter
CPT/HCPCS: 96372; 99282

== ENCOUNTER 2018-09-26 08:32 | Outpatient (CLI) | END 2018-09-26 08:33 | disposition home or self-care (01) | LOC: LAB 08:32 | PROVIDERS: ATTEND Nurse Practitioner Family | DX: E11.9 Type 2 diabetes mellitus without complications (principal); E78.5 Hyperlipidemia, unspecified; E55.9 Vitamin D deficiency, unspecified; I25.118 Atherosclerotic heart disease of native coronary artery with other forms of angina pectoris | CPT/HCPCS: 36415; 80053; 80061; 82306; 83036; 85025 ==

== ENCOUNTER 2018-10-22 06:50 | Inpatient (IN) ==
[2018-10-22] MEDS ORDERED: ZOSYN 3.375 GM 3.375 GM in SODIUM CHLORIDE 50 ML IV STA (07:05)
--- NOTE | 2018-10-22 07:08 | ED.PDOC ---
General ED Provider: Dr. LEIGH ANN GAMBOA Chief Complaint: Toe Pain/Injury Stated Complaint: Patient is a 57 year old female who comes to the ER with complains of Right great toe area redness and pain for 7 days. Has had similar symptoms in the past for which she was kept for IV antibiotics for cellulitis. States that the would has been draining some. She uses insulin but does not check her blood gluocose. States that she is Lazy. Mother of Diabetic complications. Time Seen by Physician: 07:04 Mode of Arrival: Walk-In Information Source: Patient Primary Care Provider: KYMBERLY CAROLINA Nursing and Triage Documentation Reviewed and Agree: Yes Does patient meet sepsis criteria?: No System Inflammatory Response Syndrome: Not Applicable Sepsis Protocol: For patient's 13 years and over: Temp is 96.8 and below OR 101 and greater Pulse >90 BPM Resp >20/minute Acutely Altered Mental Status Are patient's symptoms suggestive of a new infection, such as: -Pneumonia -Skin, Soft Tissue -Endocarditis -UTI -Bone, Joint Infection -Implantable Device -Acute Abdominal Infection -Wound Infection -Meningitis -Blood Stream Catheter Infection -Unknown Skin Complaint Exam - Skin/Soft Tissue Complaint/Exam Onset/Duration: 7 days Symptoms Are: Still present Timing: Constant Initial Severity: Mild Current Severity: Moderate Location: right Great toe and foot Character: Reports: Redness, Painful Aggravating: Reports: Touch Associated Signs and Symptoms: Reports: Tenderness, Red streaks Related History: Reports: Similar episode (with previous Cellulitis ) Related Surgical History: Reports: None Recent Exposure to Others w/Similar Symptoms: No Skin Findings: Present: Erythema, Other (right great toe ulcer measuring 1cm with minimal drainage ) Joint Tenderness Present: Yes Differential Diagnoses: Cellulitis, MRSA, Other (osteomyelitis ) Review of Systems - Review Of Systems Constitutional: Reports: No symptoms Eyes: Reports: No symptoms Ears, Nose, Mouth, Throat: Reports: No symptoms Respiratory: Reports: No symptoms Cardiac: Reports: No symptoms GI: Reports: No symptoms : Reports: No symptoms Musculoskeletal: Reports: Joint pain Skin: Reports: Change in color (Redness on the right foot ) Neurological: Reports: No symptoms Endocrine: Reports: No symptoms Hematologic/Lymphatic: Reports: No symptoms All Other Systems: Reviewed and Negative Past Medical History - Past Medical History Previously Healthy: No Endocrine: Reports: Hypothyroid Cardiovascular: Reports: Hypertension Respiratory: Reports: COPD, Asthma Hematological: Reports: None Gastrointestinal: Reports: GERD, Liver (fatty liver) Genitourinary: Reports: None Neuro/Psych: Reports: Depression Musculoskeletal: Reports: None Cancer: Reports: None Last Menstrual Period: PT HAS HAD A HYSTERECTOMY Other Pertinent Past Medical History: SLEEP APNEA - Surgical History General Surgical History: Reports: Hysterectomy, (HERNIA REPAIR AND C- SECTION), Appendectomy, Cholecystectomy, Tonsillectomy, Adenoidectomy, Back Surgery, Other (CATARACT SURGERY BILITERALLY, ) - Family History Family History: Reports: Diabetes - Social History Smoking Status: Never smoker Hx Substance Use: No Alcohol Screening: None - Immunizations Tetanus Shot up to Date: (UNKNOWN) Physical Exam - Physical Exam Appearance: Ill-appearing, Obese Ill-appearing: Mild Pain Distress: Moderate Neck: Supple Respiratory: Airway patent, Breath sounds clear, Breath sounds equal, Respirations nonlabored Cardiovascular: RRR, Pulses normal, No rub, No murmur Skin: Warm, Dry Neurological: Alert, Oriented Psychiatric: Anxious Interpretation - Radiology Interpretation Radiology Interpretation By: Radiologist Radiology Results: Negative Exam Interpreted: Other (Right foot x ray ) Physician Notification - Case Discussed Physician Notified: Dr Moses Time of Notification: 09:20 (ok to admit. ) Critical Care Note - Critical Care Note Total Time (mins): 0 Course - Course Hematology/Chemistry: 10/22/18 07:22 10/22/18 07:22 Orders, Labs, Meds: Lab Review 10/22/18 10/22/18 10/22/18 07:22 07:22 07:22 WBC 9.53 RBC 5.22 Hgb 13.0 Hct 41.2 MCV 78.9 L MCH 24.9 L MCHC 31.6 L RDW Coeff of Vern 16.2 H Plt Count 352 Immature Gran % (Auto) 0.4 Neut % (Auto) 65.5 Lymph % (Auto) 22.7 [place] % (Auto) 9.5 Eos % (Auto) 1.2 Baso % (Auto) 0.7 Immature Gran # (Auto) 0.0 Neut # (Auto) 6.2 Lymph # (Auto) 2.2 T[place] # (Auto) 0.9 Eos # (Auto) 0.1 Baso # (Auto) 0.1 Sodium 140.1 Potassium 2.95 L Chloride 96.0 L Carbon Dioxide 30.9 H Anion Gap 16.15 BUN 32.3 H Creatinine 0.85 Estimated GFR (MDRD) 69.00 BUN/Creatinine Ratio 38.00 Glucose 156.9 H Hemoglobin A1c Lactic Acid Calcium 9.94 Total Bilirubin 0.53 AST 34.0 ALT 35.7 H Alkaline Phosphatase 50.0 Total Protein 7.46 Albumin 4.46 Globulin 3.00 Albumin/Globulin Ratio 1.48 Procalcitonin < 0.05 10/22/18 10/22/18 07:22 07:22 WBC RBC Hgb Hct MCV MCH MCHC RDW Coeff of Vern Plt Count Immature Gran % (Auto) Neut % (Auto) Lymph % (Auto) T[place] % (Auto) Eos % (Auto) Baso % (Auto) Immature Gran # (Auto) Neut # (Auto) Lymph # (Auto) T[place] # (Auto) Eos # (Auto) Baso # (Auto) Sodium Potassium Chloride Carbon Dioxide Anion Gap BUN Creatinine Estimated GFR (MDRD) BUN/Creatinine Ratio Glucose Hemoglobin A1c 9.80 H Lactic Acid 2.91 H Calcium Total Bilirubin AST ALT Alkaline Phosphatase Total Protein Albumin Globulin Albumin/Globulin Ratio Procalcitonin Orders Category Date Time Status ACTIVITY .Up ad Fauzia CARE 10/22/18 09:20 Active BLOOD GLUCOSE MONITORING 0630,1100,1700,2100 CARE 10/22/18 09:20 Active GIVE HS SNACK 2100 CARE 10/22/18 09:22 Active INTAKE & OUTPUT Q8HR CARE 10/22/18 09:20 Active VITAL SIGNS Q8HR CARE 10/22/18 09:20 Active ADA 1800 ROBER. DIET DIETARY 10/22/18 Lunch Ordered HS SNACK DIETARY 10/22/18 Dinner Ordered ED APPLY O2 .ONCE EMERGENCY 10/22/18 07:05 Active ED UI APPLICATION DEVELOPER APPLIED .ONCE EMERGENCY 10/22/18 07:05 Active ED IV/MEDIPORT/POWERPORT .ONCE EMERGENCY 10/22/18 07:05 Active ED VITAL SIGNS Q1HR EMERGENCY 10/22/18 07:05 Active BLOOD CULTURE Stat LAB 10/22/18 07:57 Received CBC W/ AUTO DIFF Stat LAB 10/22/18 07:22 Completed COMPREHENSIVE METABOLIC PANEL Stat LAB 10/22/18 07:22 Completed ESR Stat LAB 10/22/18 07:22 Received HEMOGLOBIN A1C Stat LAB 10/22/18 07:22 Completed LACTIC ACID Stat LAB 10/22/18 07:22 Completed PROCALCITONIN Stat LAB 10/22/18 07:22 Completed 0.9 % Sodium Chloride [Saline Flush] MEDS 10/22/18 07:05 Active 1 syr IVF PRN PRN Albuterol Sulfate 0.083% Neb [Albuterol 0.083% Neb] MEDS 10/22/18 09:23 Ordered 1 vial NEB RTQ4H PRN Albuterol Sulfate [Proair Hfa] MEDS 10/22/18 15:00 Ordered DOSE puff IH TID Atorvastatin Calcium [Atorvastatin Calcium] MEDS 10/22/18 21:00 Ordered 80 mg PO BEDTIME Budesonide/Formoterol Fumarate [Symbicort 160-4.5 Mcg MEDS 10/22/18 21:00 Ordered Inhaler] 2 puff IH BID Empaglifozin [Jardiance] MEDS 10/23/18 09:00 Ordered 10 mg PO DAILY Enoxaparin Sodium [Lovenox] MEDS 10/23/18 09:00 Ordered 40 mg SUBCUT DAILY Fenofibrate [Triglide] MEDS 10/22/18 21:00 Ordered 160 mg PO BEDTIME Furosemide [Furosemide] MEDS 10/23/18 06:30 Ordered 1 tab PO QDAC Hydrochlorothiazide MEDS 10/23/18 09:00 Ordered 25 mg PO DAILY Insulin Glargine,Hum.rec.anlog [Lantus Solostar] MEDS 10/22/18 21:00 Ordered 84 un SQ BEDTIME Insulin Lispro [Admelog Solostar] MEDS 10/22/18 12:00 Ordered 22 unit SQ TIDWM Levothyroxine Sodium [Synthroid] MEDS 10/23/18 09:00 Ordered 75 mcg PO DAILY Metformin HCl [Metformin HCl] MEDS 10/22/18 21:00 Ordered 1,000 mg PO BID Metoprolol Tartrate [Lopressor] MEDS 10/22/18 21:00 Ordered 25 mg PO BID Nitroglycerin [Nitrostat] MEDS 10/22/18 09:23 Ordered 0.4 mg SL Q5MIN PRN Shady Side-3 Acid Ethyl Esters [Lovaza] MEDS 10/22/18 12:00 Ordered 1 gm PO TIDWM Omeprazole [Prilosec] MEDS 10/22/18 21:00 Ordered 20 mg PO BID Oxycodone-Acetaminophen 10-325 [Percocet 10-325] MEDS 10/22/18 09:23 Ordered DOSE tab PO QID PRN PRN Piperacillin Sodium/Tazobactam [Zosyn 3.375 gm] 3.375 MEDS 10/22/18 07:05 Discontinued gm 0.9 % Sodium Chloride [Sodium Chloride] 50 ml IV ONCE Piperacillin Sodium/Tazobactam [Zosyn 3.375 gm] 3.375 MEDS 10/22/18 12:00 Ordered gm 0.9 % Sodium Chloride [Sodium Chloride] 50 ml IV Q6HR Polyethylene Glycol 3350 [Miralax] MEDS 10/22/18 09:23 Ordered 17 gm PO DAILY PRN Potassium Chloride [K-Dur] MEDS 10/23/18 09:00 Ordered 40 meq PO DAILY Potassium Chloride [K-Dur] MEDS 10/22/18 07:57 Discontinued 40 meq PO ONCE STA Potassium Chloride-0.45% NaCl [Sodium Chloride 0.45%- MEDS 10/22/18 09:30 Ordered KCl 20 Meq] 1,000 ml IV 125 mls/hr Potassium Chloride-0.45% NaCl [Sodium Chloride 0.45%- MEDS 10/22/18 08:30 Discontinued KCl 20 Meq] 1,000 ml IV 200 mls/hr Pregabalin [Lyrica] MEDS 10/22/18 21:00 Ordered 100 mg PO BID Tizanidine HCl [Zanaflex] MEDS 10/22/18 15:00 Ordered 4 mg PO TID Trazodone HCl [Trazodone HCl] MEDS 10/22/18 21:00 Ordered 1 tab-cap PO BEDTIME RESUSCITATION STATUS Routine OTHERS 10/22/18 09:19 Ordered FOOT, RIGHT 3 VIEWS Stat RADS 10/22/18 07:09 Completed Medications Generic Name Dose Route Start Last Admin Trade Name Freq PRN Reason Stop Dose Admin Albuterol Sulfate puff 10/22/18 15:00 Proair Hfa IH TID BISI Albuterol Sulfate 1 vial 10/22/18 09:23 Albuterol 0.083% Neb NEB RTQ4H PRN dyspnea Budesonide/Formoterol Fumarate 2 puff 10/22/18 21:00 Symbicort 160-4.5 Mcg Inhaler IH BID BISI Empagliflozin 10 mg 10/23/18 09:00 Jardiance PO DAILY [facility] Enoxaparin Sodium 40 mg 10/23/18 09:00 Lovenox SUBCUT DAILY [facility] Fenofibrate 160 mg 10/22/18 21:00 Triglide PO BEDTIME BISI Hydrochlorothiazide 25 mg 10/23/18 09:00 Hydrochlorothiazide PO DAILY [facility] Piperacillin Sod/Tazobactam 50 mls @ 50 mls/hr 10/22/18 12:00 Sod 3.375 gm/ Sodium Chloride IV 10/25/18 11:59 Q6HR BISI Potassium Chloride/Sodium Chloride 1,000 mls @ 125 mls/hr 10/22/18 09:30 Sodium Chloride 0.45%-Kcl 20 Meq IV .Q8H [facility] Levothyroxine Sodium 75 mcg 10/23/18 09:00 Synthroid PO DAILY [facility] Metoprolol Tartrate 25 mg 10/22/18 21:00 Lopressor PO BID [facility] Nitroglycerin 0.4 mg 10/22/18 09:23 Nitrostat SL Q5MIN PRN Angina Non-Formulary Medication 80 mg 10/22/18 21:00 Atorvastatin Calcium [Atorvastatin Calcium] PO BEDTIME BISI Non-Formulary Medication 1 tab 10/23/18 06:30 Furosemide [Furosemide] PO QDAC BISI Non-Formulary Medication 84 un 10/22/18 21:00 Insulin Glargine,Hum.Rec.Anlog [Lantus Solostar] SQ BEDTIME BISI Non-Formulary Medication 22 unit 10/22/18 12:00 Insulin Lispro [Admelog Solostar] SQ TIDWM BISI Non-Formulary Medication 1 gm 10/22/18 12:00 Shady Side-3 Acid Ethyl Esters [Lovaza] PO TIDWM BISI Non-Formulary Medication 100 mg 10/22/18 21:00 Pregabalin [Lyrica] PO BID BISI Non-Formulary Medication 1 tab-cap 10/22/18 21:00 Trazodone Hcl [Trazodone Hcl] PO BEDTIME BISI Non-Formulary Medication 1,000 mg 10/22/18 21:00 Metformin Hcl [Metformin Hcl] PO BID [facility] Omeprazole 20 mg 10/22/18 21:00 Prilosec PO BID [facility] Oxycodone/Acetaminophen tab 10/22/18 09:23 Percocet 10-325 PO QID PRN PRN severe pain Polyethylene Glycol 17 gm 10/22/18 09:23 Miralax PO DAILY PRN constipation Potassium Chloride 40 meq 10/23/18 09:00 K-Dur PO DAILY BISI Sodium Chloride 1 syr 10/22/18 07:05 10/22/18 07:50 Saline Flush IVF 1 syr PRN PRN Administration To flush IV Tizanidine HCl 4 mg 10/22/18 15:00 Zanaflex PO TID BISI Discontinued Medications Generic Name Dose Route Start Last Admin Trade Name Freq PRN Reason Stop Dose Admin Piperacillin Sod/Tazobactam 50 mls @ 50 mls/hr 10/22/18 07:05 10/22/18 07:50 Sod 3.375 gm/ Sodium Chloride IV 10/22/18 08:04 50 mls/hr ONCE STA Administration Potassium Chloride/Sodium Chloride 1,000 mls @ 200 mls/hr 10/22/18 08:30 08:20 Sodium Chloride 0.45%-Kcl 20 Meq IV 200 mls/hr .Q5H BISI Administration Potassium Chloride 40 meq 10/22/18 07:57 10/22/18 08:20 K-Dur PO 10/22/18 07:58 40 meq ONCE STA Administration Vital Signs: Temp Pulse Resp BP Pulse Ox 10/22/18 06:50 98.9 F 79 20 126/90 94 L Departure - Departure Time of Disposition: 09:33 Disposition: ADMITTED INPATIENT Discharge Problem: Cellulitis of right foot, Hypokalemia Diabetic foot ulcer Qualifiers: Diabetic foot ulcer location: toe Diabetes mellitus type: type 2 Laterality: right Non-pressure ulcer stage: unspecified non-pressure ulcer stage Qualified Code(s): E11.621 - Type 2 diabetes mellitus with foot ulcer Condition: Fair Pt referred to PMD for follow-up: Yes IPMP verified?: No Allergies/Adverse Reactions: Allergies No Known Allergies Allergy (Verified 10/22/18 07:04) Home Medications: Ambulatory Orders Metformin HCl 1,000 mg PO BID 02/06/13 Omeprazole [Prilosec] 20 mg PO BID 03/09/13 Nitroglycerin 0.4 mg SL Q5MIN PRN 08/02/17 Metoprolol Tartrate 25 mg PO BID 10/22/17 Oxycodone HCl/Acetaminophen [Percocet 10-325 mg Tablet] 1 each PO QID PRN PRN Tizanidine HCl 4 mg PO TID 02/17/18 Albuterol Sulfate 0.083% Neb [Albuterol 0.083% Neb] 1 vial NEB RTQ4H PRN Polyethylene Glycol 3350 [Miralax] 17 gm PO DAILY PRN 10/22/18 Disposition Discussed With: Patient
--- NOTE | 2018-10-22 07:38 | DI ---
Exam: Three views of the right foot. Comparison: None available. Reason for exam: Toe pain. Possible osteomyelitis. FINDINGS: No acute fracture or malalignment. There is degenerative disease with joint space narrowi ng and osteophyte formation. No definite osseous erosions. No unexplained calcific soft tissue dens ities. Impression: 1. No acute fracture or malalignment in the right foot. 2. No definite osseous erosions are seen. If clinical concern exists for osteomyelitis, MRI could b e performed for further characterization.
[2018-10-22] MEDS ORDERED: SODIUM CHLORIDE 0.9%-KCL 20 MEQ 1,000 ML IV STA (07:57)
[2018-10-22] MEDS ORDERED: K-DUR PO STA (07:57)
[2018-10-22] MEDS ORDERED: SODIUM CHLORIDE 0.45%-KCL 20 MEQ 1,000 ML IV SCH (08:30)
[2018-10-22] MEDS: SODIUM CHLORIDE 0.45%-KCL 20 MEQ 1,000 ML IV SCH ×2 (09:20→21:12)
[2018-10-22] MEDS ORDERED: MIRALAX PO PRN (09:23)
[2018-10-22] MEDS ORDERED: ALBUTEROL 0.083% NEB NEB PRN (09:23)
[2018-10-22] MEDS ORDERED: NITROSTAT SL PRN (09:23)
[2018-10-22 10:12] VITALS: BMI 42.0
[2018-10-22] MEDS ORDERED: ZOSYN 3.375 GM 3.375 GM in SODIUM CHLORIDE 50 ML IV SCH (12:00)
[2018-10-22] MEDS ORDERED: NON-FORMULARY MEDICATION (Omega-3 Acid Ethyl Esters [Lovaza] 1 GM) PO SCH (12:00)
[2018-10-22] MEDS ORDERED: INSULIN LISPRO 22 UNIT SQ SCH (12:00)
[2018-10-22] MEDS: OMEGA-3 FISH OIL PO SCH ×2 (12:28→16:50)
[2018-10-22] MEDS: HUMALOG SUBCUT SCH ×2 (12:28→16:51)
[2018-10-22] MEDS: VANCOMYCIN 1 GM in SODIUM CHLORIDE 250 ML IV SCH ×2 (12:40→23:13)
[2018-10-22] MEDS: MAXIPIME 2 GM in SODIUM CHLORIDE 100 ML IV SCH ×2 (14:52→21:07)
[2018-10-22] MEDS: PROAIR HFA IH SCH ×2 (14:52→21:12)
[2018-10-22] MEDS: ZANAFLEX PO SCH ×2 (14:52→21:08)
[2018-10-22] MEDS: GLUCOPHAGE PO SCH (16:49)
[2018-10-22] MEDS: PRILOSEC PO SCH (16:50)
[2018-10-22] MEDS ORDERED: NON-FORMULARY MEDICATION (Metformin Hcl [Metformin Hcl] 1,000 MG) PO SCH (21:00)
[2018-10-22] MEDS ORDERED: TRAZODONE HCL PO SCH (21:00)
[2018-10-22] MEDS ORDERED: INSULIN GLARGINE HUM REC ANLOG SQ SCH (21:00)
[2018-10-22] MEDS ORDERED: NON-FORMULARY MEDICATION (Atorvastatin Calcium [Atorvastatin Calcium] 80 MG) PO SCH (21:00)
[2018-10-22] MEDS ORDERED: NON-FORMULARY MEDICATION (Pregabalin [Lyrica] 100 MG) PO SCH (21:00)
[2018-10-22] MEDS: SYMBICORT 160-4.5 MCG INHALER IH SCH (21:07)
[2018-10-22] MEDS: DESYREL PO SCH (21:07)
[2018-10-22] MEDS: LYRICA PO SCH (21:08)
[2018-10-22] MEDS: TRIGLIDE PO SCH (21:08)
[2018-10-22] MEDS: LIPITOR PO SCH (21:08)
[2018-10-22] MEDS: LOPRESSOR PO SCH (21:08)
[2018-10-22] MEDS: LANTUS SUBCUT SCH (21:12)
[2018-10-23] MEDS: MAXIPIME 2 GM in SODIUM CHLORIDE 100 ML IV SCH ×3 (04:45→20:54)
[2018-10-23] MEDS: PRILOSEC PO SCH ×2 (05:56→17:43)
[2018-10-23] MEDS: PERCOCET 10-325 PO PRN ×2 (05:56→20:54)
[2018-10-23] MEDS: SYNTHROID PO SCH (05:56)
[2018-10-23] MEDS: LASIX TAB PO SCH (05:56)
[2018-10-23] MEDS ORDERED: FUROSEMIDE PO SCH (06:30)
[2018-10-23] MEDS: VANCOMYCIN 1 GM in SODIUM CHLORIDE 250 ML IV SCH ×2 (08:16→20:54)
[2018-10-23] MEDS: K-DUR PO SCH (08:17)
[2018-10-23] MEDS: GLUCOPHAGE PO SCH ×2 (08:17→17:43)
[2018-10-23] MEDS: OMEGA-3 FISH OIL PO SCH ×3 (08:17→17:43)
[2018-10-23] MEDS: LOPRESSOR PO SCH ×2 (08:18→20:54)
[2018-10-23] MEDS: HYDROCHLOROTHIAZIDE PO SCH (08:18)
[2018-10-23] MEDS: ZANAFLEX PO SCH ×3 (08:18→20:54)
[2018-10-23] MEDS: LYRICA PO SCH ×2 (08:18→20:55)
[2018-10-23] MEDS: JARDIANCE PO SCH (08:18)
[2018-10-23] MEDS: HUMALOG SUBCUT SCH ×3 (08:19→17:44)
[2018-10-23] MEDS: LOVENOX SUBCUT SCH (08:21)
[2018-10-23] MEDS: SYMBICORT 160-4.5 MCG INHALER IH SCH ×2 (08:22→20:54)
[2018-10-23] MEDS: PROAIR HFA IH SCH ×3 (08:22→20:54)
[2018-10-23] MEDS: SODIUM CHLORIDE 0.45%-KCL 20 MEQ 1,000 ML IV SCH (08:45)
[2018-10-23] MEDS: LIPITOR PO SCH (20:54)
[2018-10-23] MEDS: LANTUS SUBCUT SCH (20:55)
[2018-10-23] MEDS: DESYREL PO SCH (20:55)
[2018-10-23] MEDS: TRIGLIDE PO SCH (20:55)
[2018-10-24] MEDS: MAXIPIME 2 GM in SODIUM CHLORIDE 100 ML IV SCH ×3 (05:05→20:35)
[2018-10-24] MEDS: SYNTHROID PO SCH (05:59)
[2018-10-24] MEDS: LASIX TAB PO SCH (05:59)
[2018-10-24] MEDS: PRILOSEC PO SCH ×2 (05:59→17:22)
[2018-10-24] MEDS: VANCOMYCIN 1 GM in SODIUM CHLORIDE 250 ML IV SCH ×2 (08:52→21:49)
[2018-10-24] MEDS: GLUCOPHAGE PO SCH ×2 (08:52→17:22)
[2018-10-24] MEDS: LYRICA PO SCH ×2 (08:52→20:38)
[2018-10-24] MEDS: K-DUR PO SCH (08:52)
[2018-10-24] MEDS: OMEGA-3 FISH OIL PO SCH ×3 (08:52→17:22)
[2018-10-24] MEDS: LOPRESSOR PO SCH ×2 (08:53→20:38)
[2018-10-24] MEDS: ZANAFLEX PO SCH ×3 (08:53→20:38)
[2018-10-24] MEDS: JARDIANCE PO SCH (08:53)
[2018-10-24] MEDS: HYDROCHLOROTHIAZIDE PO SCH (08:53)
[2018-10-24] MEDS: HUMALOG SUBCUT SCH ×3 (08:54→17:22)
[2018-10-24] MEDS: LOVENOX SUBCUT SCH (08:56)
[2018-10-24] MEDS: PROAIR HFA IH SCH ×3 (11:00→20:37)
[2018-10-24] MEDS: SYMBICORT 160-4.5 MCG INHALER IH SCH ×2 (11:01→20:37)
[2018-10-24] MEDS: LIPITOR PO SCH (20:37)
[2018-10-24] MEDS: PERCOCET 10-325 PO PRN (20:38)
[2018-10-24] MEDS: DESYREL PO SCH (20:38)
[2018-10-24] MEDS: TRIGLIDE PO SCH (20:38)
[2018-10-24] MEDS: LANTUS SUBCUT SCH (20:38)
[2018-10-25] MEDS: MAXIPIME 2 GM in SODIUM CHLORIDE 100 ML IV SCH (05:08)
[2018-10-25] MEDS: LASIX TAB PO SCH (05:37)
[2018-10-25] MEDS: PRILOSEC PO SCH ×2 (05:37→16:29)
[2018-10-25] MEDS: SYNTHROID PO SCH (05:38)
--- NOTE | 2018-10-25 08:19 | HP ---
DATE OF SERVICE: 10/22/18 CHIEF COMPLAINT: Swelling, redness right big toe with minimal drainage. SOURCE OF HISTORY: The patient, reliability good. HISTORY OF PRESENT ILLNESS: The patient claimed that she noted something in the plantar surface of the right big toe Wednesday 6 days prior to presentation to the emergency room as skin break. It did begin to bother her two days after, Wednesday with some soreness to pressure but no pain. The patient presented to the emergency room Wednesday 6 days later because of the swelling and redness and minimal drainage. There also was a break on the anterior surface of the big toe. The patient at the emergency room was noted to have a red streak from the big toe to the dorsal surface of the right foot. Emergency room physician ordered an X-ray of the right foot, right big toe only no acute fracture or malalignment in the right foot. No definite osseous erosions are seen. MRI for further characterization. CBC showed normal WBC, Normal hgb and hct. Lower MCV and MCH. Elevated RDW. Electrolytes slightly lower potassium of 2.95, chloride 96 otherwise unremarkably. Co2 30.9, BUN 32.3, creatinine 0.85, EGFR 69, blood sugar 156.9, hgb A1c 9.8, lactic acid 2.91 slightly elevated, ALT slightly elevated 35.7 maximum normal 35. Alkaline phosphatase normal 50, Procalcitonin less than 0.05. The Emergency Room physician felt that the patient needed admission to the hospital for treatment of the swelling and redness of the big toe and the first MTP joint. There is also a red streak from the big toe towards the dorsal surface of the right foot. Vital signs in the emergency room; temperature 98.9 last Tylenol intake was yesterday, pulse 79, respiratory rate 20, oxygen saturation 94% at room air, blood pressure 126/90. Pain level 8. Markedly elevated BMI. 4'11.7 inches, 203 pounds and 14.4 ounces, BMI 40.1. ER physician recommended admission because of the swelling, redness and red streak as well as uncontrolled diabetes and pain. Blood culture as well as wound culture were obtained from the emergency room. This patient was given Zosyn 3.375grams intervenously. PAST PERSONAL HISTORY: The patient has cataract surgery in 2003 Ventilation tube left ear Tonsillectomy probably adenoidectomy as a child Coronary artery disease with GA 2017 Cardiac catheterization and stent Obstructive sleep apnea using a CPAP mostly at night History of GERD History of fatty liver History gallbladder surgery Appendectomy Total abdominal hysterectomy and DSO most likely Carpal tunnel surgery, left 09/17/16 Lumbar surgery 2001 Diagnosis with Diabetes beyond 20 years History of psychiatric problems Depression plus anxiety PAP smear 2015 Mammogram 2016 Colonoscopy 2016 Endoscopy 2016 Admitted 02/03/2018 for ulceration left big toe with cellulitis culture MRSA plus strep [facility] FAMILY HISTORY: Sister has borderline diabetes Father, irwin not know any history with regards to her father Mother has history of diabetes, heart disease History of stroke in the family SOCIAL HISTORY: The patient's demographics show that she is single with grown children. She never did smoke. MEDICATIONS: Metformin 1,000mg twice a day Omeprazole 20mg twice a day Nitroglycerin 0.4mg sublingually PRN Metoprolol Tartrate 25mg twice a day Oxycodone-Tylenol 10-325mg one tablet four times a day PRN Lipitor 80mg daily Tizanidine 4mg three times a day Jardiance 10mg daily Hydrochlorothiazide 25mg daily Trazodone 100mg daily at bedtime Albuterol Sulfate HFA three times a day Symbicort 160/4.5mg two puffs twice a day Lasix 80mg daily Flonase two sprays to each nostril daily Fenofibrate 160mg tablet daily Levothyroxine 75mcg daily [place] 3 1 gram three times a day (Lovaza) Lantus Insulin 84 units at bedtime Repatha 140mg SUBCUT twice a day Insulin Lispro Admelog 22 unit SUBCUT three times a day Lyrica 100mg twice a day Albuterol 0.083% for nebulization four times a day as needed Miralax 17 grams packet dissolve in water daily PRN ALLERGIES: No known allergies REVIEW OF SYSTEMS: CONSTITUTIONAL: No fever, no chills and no significant fatigue. ETL DATABASE DEVELOPER: Denies any headaches or ataxia, syncopal episode or seizure events. VISUAL: Denies any blurred vision, double vision or loss of vision. AUDITORY: Hearing adequate. No tinnitus. No pain, no drainage. RESPIRATORY: The patient has some shortness of breath on exertion and also has a diagnosis of obstructive sleep apnea using a CPAP in the evening. The patient never had smoked and this is probably secondary to obesity. She is taking a LABA plus short acting bronchodilators. Also taking steroid along with long acting Beta adrenergic agonist type. CARDIOVASCULAR: The patient has history of myocardial infarction as well as cardiac catheterization and stent deployment. The patient denies any chest pain or any chest tightness or diaphoresis or shortness of breath at rest. GASTROINTESTINAL: No nausea, anorexia, dysphagia, abdominal pain or change on bowel habits. GENITOURINARY: Denies any pain, frequency or urgency or urination. MUSCULOSKELETAL: The patient had chronic lumbar pain with prior surgery of the lumbar spine with hardware. She mentioned that she had 12 screws in the back. She had a previous infection on the left big toe and now the right. ENDOCRINE: The patient has diabetes Mellitus uncontrolled. Had been diabetic more than 20 years. The patient denies any polyuria or polydipsia. INTEGUMENT: denies any rash or pruritus. The patient does have some crusted areas on the right big toe. There is no drainage. I did not see the red streaks anymore. Most prominent red area in the plantar surface of the right first MTP joint. HEMATOLOGIC: The patient had a lower MCV and MCH and elevated RDW with a normal HGB and HCT. No history of prolonged bleeding or spontaneous bleeding. PSYCHIATRIC: The patient had history of depression, anxiety also mentioned psychological problems. I do not have the diagnosis of that. PHYSICAL EXAMINATION: GENERAL: We have a 57 year old female with a markedly elevated BMI 42.1. She is diabetic and admitted to the hospital because of an infected right big toe with more prominent swelling and redness at the plantar surface of the first MTP joint area. Minimal drainage and no drainage at the time of my examination. VITAL SIGNS: Temperature 98.2, pulse 76, blood pressure 141/78, respiratory rate 16 and oxygen saturation 95 at room air. 4'11, 208 pounds and 1.86 ounces. She was measured at 4'11.75 in the emergency room. HEAD: Unremarkable. Scalp has no active dermatitis. FACE: Symmetrical and equal with no facial weakness, no redness and no significant tenderness in the frontal and maxillary sinus areas to palpation under pressure. EYES: Pupils equal/reactive to light. Conjunctivae not pale. Sclerae not icteric. About 3mm in size and round. MOUTH: Unremarkable. THROAT: No inflammation, tumors or exudate. NECK: No masses. No bruit. No tenderness. No rigidity. CHEST: Symmetrical and equal with good expansion. No remarkable tenderness. Breast not examined LUNGS: Breath sounds are heard in both sides, diminished but no rales or wheezing. HEART: Audible and regular with good tones. No murmurs. ABDOMEN: Protuberant and soft with no remarkable tenderness. No guarding. Bowels sounds are active. No masses palpable. LOWER EXTREMITIES: Symmetrical and equal with no edema. Anterior tibials are palpable, posterior tibials are absent. Right big toe is crusted. There is no drainage noted and red streak at this time. The patient already had received doses of antibiotics. UPPER EXTREMITIES: Symmetrical and equal. ASSESSMENT: 1. Infected big toe, cellulitis with no obvious abscess 2. Lymphangitis 3. Diabetes Mellitus insulin dependant uncontrolled 4. Severe obesity, BMI 42 5. Peripheral arterial disease absent posterior tibials 6. Obstructive sleep apnea on CPAP 7. Coronary artery disease post GA and post stent deployment PROGNOSIS: Guarded. TIME SPENT: GREATER THAN 65 MINUTES MTDD
[2018-10-25] MEDS: LOPRESSOR PO SCH (08:36)
[2018-10-25] MEDS: GLUCOPHAGE PO SCH ×2 (08:36→16:30)
[2018-10-25] MEDS: LYRICA PO SCH (08:36)
[2018-10-25] MEDS: ZANAFLEX PO SCH ×2 (08:37→14:04)
[2018-10-25] MEDS: OMEGA-3 FISH OIL PO SCH ×3 (08:37→16:29)
[2018-10-25] MEDS: HYDROCHLOROTHIAZIDE PO SCH (08:37)
[2018-10-25] MEDS: K-DUR PO SCH (08:37)
[2018-10-25] MEDS: JARDIANCE PO SCH (08:38)
[2018-10-25] MEDS: PROAIR HFA IH SCH ×2 (08:40→14:04)
[2018-10-25] MEDS: SYMBICORT 160-4.5 MCG INHALER IH SCH (08:40)
[2018-10-25] MEDS: VANCOMYCIN 1 GM in SODIUM CHLORIDE 250 ML IV SCH (08:40)
[2018-10-25] MEDS: HUMALOG SUBCUT SCH ×3 (08:46→16:30)
[2018-10-25] MEDS: LOVENOX SUBCUT SCH (08:50)
[2018-10-25 14:24] VITALS: BP 140/77; TEMP 98
--- NOTE | 2018-10-26 14:37 | PN ---
DATE OF SERVICE: 10/23/18 SUBJECTIVE: The patient today is alert and oriented times four. She is not dyspneic or tachypneic. Her vital signs showed a temperature of 98.1, pulse 67, blood pressure 125/61, respiratory rate 17 and oxygen saturation 96 at room air. I did see her about 12:30pm today. The redness of the plantar surface of the first MTP joint is less as well as the swelling. There is no drainage of the right big toe. I had ordered soaking the toe 30 minutes twice a day with warm water and Epsom salt. The blood cultures are still negative and the wound culture too young to read. The previous culture on the left foot had MRSA plus Streptococcus. This patient is treated as an infected foot with MRSA and including a pseudomonas coverage since she is given Cefepime 2grams every 8 hours and Vancomycin 1 gram Q 12 hours. Her GFR is higher today than yesterday. LUNGS: Clear HEART: Normal sinus rhythm I had again discussed with the patient that she needed to lose weight. I do think that losing weight would actually effect the trajectory of her life span. Believe that the diabetes would probably be much easier and probably not requiring insulin if she would lose weight to her ideal weight or close to it. Her lipids also and maybe her respiratory problems. She never did smoke and she probably has restrictive problem rather than obstructive problems. We will obtain blood test tomorrow including Lipids. I had advised the patient that maybe once we get the culture that she would go home. The previous culture showed that the bacteria is sensitive to the antibiotics given including Bactrim. MTDConstantino
--- NOTE | 2018-11-11 09:37 | PN ---
DATE OF VISIT: 10/24/18 The patient was seen in the evening, but her vital signs obtained what were at 2 o'clock in the afternoon. The temperature was 98.6, pulse 75, blood pressure 109/63, respiratory rate 14, oxygen saturation 93 at room air. The big toe is dry and no drainage and the redness has decreased remarkably. The swelling and redness has decreased remarkably. The skin is rough. WBC is normal today. MCV and MCH below normal. Blood sugar 117.3, previous A1C on admission was 9.8. Lactic acid on admission was 2.91 and decreased to 2.34 the day before discharge. The Procalcitonin was normal. Less than 0.05 and less than 0.07. TSH 5.070. E GFR 92, creatinine 0.66, BUN 25.8. This patient is receiving Insulin for her diabetes, as well as oral medication consisting of Jardiance. She also had received the Repatha for the LDL. The patient was given Vancomycin every 12 hours of 1 gram and Zosyn 3.375 every 6 hours. Zosyn was only given for a day. The rest of her medications were continued. The patient never did smoke. I had a long discussion with her with regards to her diabetes and recurrent infection and the last admission was because of an infected left big toe and now it is the right. I told her that I am afraid that she would probably lose on her digits if she continues to have a diabetes that is not controlled. I told her that the best treatment for her diabetes is to lose weight. We have not measured her fasting Insulin since she is already on Insulin. She probably needs to be categorized as to what kind of diabetes. She needs to have Plasma C Peptide level fasting Insulin without Insulin administration and a CHARANJIT 65 autoantibody. I do believe that if the patient would lose some weight that her diabetes would probably improve or control would be much easier. The patient's BMI is 42.0. FINAL DIAGNOSIS: 1. CELLULITIS WITH LYMPHANGITIS RIGHT BIG TOE AND DISTAL FOOT 2. DIABETES MELLITUS UNCONTROLLED 3. MARKEDLY ELEVATED BMI OF 42.0 We will probably discharge her tomorrow. [facility]INE HOSPITALConstantino
--- NOTE | 2018-11-11 10:49 | DS ---
DATE OF SERVICE: 10/25/18 HISTORY OF PRESENT ILLNESS: Ms. Dutta is a pleasant 57 year old patient of [facility] who presented to the ER with complaints of right great toe pain with an area of redness in an open sore for the past 7 days. She did have similar symptoms in the past for which she was kept inpatient for IV antibiotics and treated for cellulitis. She does report that it has been draining some. She does use Insulin. She does not check her blood glucose that often. She presented for evaluation of this lower extremity ulceration and for treatment. An x-ray of the foot was performed and did show no acute fracture or malalignment in the right foot. No definite osseous erosions were seen. Labs were completed and her white count was normal or admission. Hemoglobin 13.0, hematocrit 41.2, platelet count 16.2. Her potassium was 3.68, BUN 27.1, creatinine 0.75. Her glucose was 253. Hemoglobin A1C elevated at 9.81. Her lactic acid was elevated at 2.91. HOSPITAL COURSE: The patient was admitted through the emergency department with a diagnosis of cellulitis of the right foot, hypokalemia, diabetic foot ulceration, diabetes mellitus type II. She was given potassium replacement and started on IV antibiotics for treatment of the ulceration of the foot. VITAL SIGNS: At discharge, temperature 98, pulse rate 72, blood pressure 140/77 , respirations 20, oxygen saturations 100% on room air. Her height recorded on admission was 4'11", weight 208 pounds. Today, on examination: EYES: Eyes 3 mm, round, reactive. LUNGS: Clear. HEART: Regular with normal sinus rhythm. ABDOMEN: Soft, nontender. No masses. LOWER EXTREMITIES: The right lower extremity peripheral pulses were palpable. There was 2+ edema to the right lower extremity. There was a sore to the right great toe with a decrease in redness and decreased tenderness. PLAN: As far as medications, were to continue home medications with a prescription for Bactrim DS one p.o. twice a day for 7 days and as well as a prescription for K-Dur 20 mEq p.o. daily. Also, Dr. Moses would like a referral to wound care. I have called [facility] and am waiting for a return phone call back. Dr. Moses would like the patient to be seen there [facility] , tomorrow if possible. We are waiting on a return phone call back from them. FINAL DIAGNOSES: 1. DIABETIC FOOT ULCER TO THE RIGHT GREAT TOE WITH CELLULITIS 2. HYPOKALEMIA 3. UNCONTROLLED DIABETES MELLITUS TYPE II 4. HYPERTENSION 5. HYPOTHYROIDISM 6. HISTORY OF CHRONIC OBSTRUCTIVE PULMONARY DISEASE AND ASTHMA 7. GASTROESOPHAGEAL REFLUX DISEASE 8. HISTORY OF DEPRESSION 9. HISTORY OF SLEEP APNEA Again, the plan at this time is to continue wound care as an outpatient basis and to continue on oral antibiotics as an outpatient, as well as oral potassium. We will repeat a BMP in one week. Antibiotics, as well as oral potassium have been called to her pharmacy and will be planning on rechecking the BMP in one week. Khloe Lawson APRN dictating a Discharge Summary for Dr. Jewel Moses. TIME SPENT: GREATER THAN 30 MINUTES MTDD
== END 2018-10-25 16:35 | disposition home or self-care (01) | DRG 638 ==
LOC: ED 06:50 → MEDSURG B 09:30
PROVIDERS: ADMIT General Practice; ATTEND General Practice
DX: E11.621 Type 2 diabetes mellitus with foot ulcer (principal); L03.115 Cellulitis of right lower limb; Z68.41 Body mass index [BMI] 40.0-44.9, adult; L53.9 Erythematous condition, unspecified; I10 Essential (primary) hypertension; I89.1 Lymphangitis; I73.9 Peripheral vascular disease, unspecified; I25.2 Old myocardial infarction; I25.10 Atherosclerotic heart disease of native coronary artery without angina pectoris; E87.6 Hypokalemia; E03.9 Hypothyroidism, unspecified; E66.01 Morbid (severe) obesity due to excess calories; J44.9 Chronic obstructive pulmonary disease, unspecified; K21.9 Gastro-esophageal reflux disease without esophagitis; F32.9 Major depressive disorder, single episode, unspecified; G47.33 Obstructive sleep apnea (adult) (pediatric)
CPT/HCPCS: 36415; 80048; 80053; 80061; 80202; 82962; 83036; 83605; 84145; 84443; 85025; 85651; 87040; 87070; 96361; 96365; 97802; 99284

== ENCOUNTER 2018-11-15 10:38 | Outpatient (CLI) | END 2018-11-15 10:39 | disposition home or self-care (01) | LOC: RHC-LAB 10:38 | PROVIDERS: ATTEND Nurse Practitioner Family | DX: S91.101A Unspecified open wound of right great toe without damage to nail, initial encounter (principal) | CPT/HCPCS: 87070; 87186 ==

== ENCOUNTER 2019-01-18 08:07 | Outpatient (CLI) | END 2019-01-18 08:08 | disposition home or self-care (01) | LOC: WOUND 08:07 | PROVIDERS: ATTEND Nurse Practitioner Family | DX: E11.621 Type 2 diabetes mellitus with foot ulcer (principal); L97.512 Non-pressure chronic ulcer of other part of right foot with fat layer exposed; I10 Essential (primary) hypertension ==

== ENCOUNTER 2019-01-25 08:14 | Outpatient (CLI) | payer OTHER | END 2019-01-25 08:15 | disposition home or self-care (01) | LOC: WOUND 08:14 | PROVIDERS: ATTEND Nurse Practitioner Family | DX: E11.621 Type 2 diabetes mellitus with foot ulcer (principal); L97.512 Non-pressure chronic ulcer of other part of right foot with fat layer exposed; I10 Essential (primary) hypertension ==

== ENCOUNTER 2019-02-01 08:30 | Outpatient (CLI) | payer OTHER | END 2019-02-01 08:31 | disposition home or self-care (01) | LOC: WOUND 08:30 | PROVIDERS: ATTEND Nurse Practitioner Family | DX: E11.621 Type 2 diabetes mellitus with foot ulcer (principal); L97.512 Non-pressure chronic ulcer of other part of right foot with fat layer exposed; I10 Essential (primary) hypertension | CPT/HCPCS: 97597 ==